=== PATIENT | female | born 1955 | race Caucasian/White ===

== ENCOUNTER 2020-01-05 23:14 | Emergency (ER) | payer OTHER, SELFPAY ==
[2020-01-05 23:19] VITALS: BP 172/84; PULSE 88; RESP 17; TEMP 36.7; O2SAT 98; BMI 30.2
--- NOTE | 2020-01-05 23:30 | ED_ITS ---
HPI - Back Pain/Injury General: Stated Complaint: back pain Time Seen by Provider: 01/05/20 23:15 Source: patient and family Mode of arrival: wheelchair Limitations: no limitations History of Present Illness: HPI Narrative: Patient is a very nice 64-year-old female who presents to ED today along with her daughter for complaints of right- sided back pain. Patient tells me earlier today she was picking up her dog and feels like she picked up and twisted wrong and immediately noticed a very sharp pain to her right back. 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 She states these normally do not cause her any problems and she normally does not suffer from back pain. She tells me her pain seems to radiate down her right leg. She is not having any saddle anesthesia. She does not complain of any bowel incontinence or urinary retention. Patient tells me she has tried to treat with Ibuprofen and Aleve both without success. MD elicited complaint: back pain Onset (ago): hour(s) Timing: constant (with severe exacerbations ) Severity: severe Pain scale (0-10): 10 Quality: sharp Location: lumbar spine and right lower back Radiation: right leg below the knee Exacerbating factors: immobilization Relieving factors: movement and walking Context: while lifting and turning/twisting Associated symptoms: Reports no associated symptoms and difficulty walking (secondary to pain); Deny abdominal pain, dysuria or fever(s) Treatments prior to arrival: NSAIDS Work related injury: No Review of Systems Const: Denies: fever(s) Card: Denies: chest pain Resp: Denies: dyspnea GI: Denies: abdominal pain : Denies: flank pain or dysuria Musc: Reports: back pain; Denies: neck pain, joint pain or joint swelling Neuro: Reports: difficulty walking (secondary to pain); Denies: numbness in extremities, sensory changes or lack of coordination Physical Exam Const: COMMON NORMALS: average body habitus, patient oriented x3, no limitations, healthy appearing, alert and well nourished GENERAL APPEARANCE: cooperative and in distress (appears very uncomfortable) Back/Pelvis: LUMBAR SPINE/LOWER BACK: No lumbar spinal tenderness, Yes straight leg raise positive right and Yes other soft tissue findings (TTP over R SI/buttock) Extremity: COMMON NORMALS: normal to inspection GENERAL: Yes normal exam except as noted Neuro: COMMON NORMALS: patient oriented x3, moves all extremities, no focal motor deficits and no sensory deficits noted SENSORIUM/ORIENTATION: Yes alert GAIT: Yes Unable to assess gait SENSORY EXAM: Yes extremities (sensory equal to bilateral LEs) MOTOR EXAM: 5/5 motor strength present throughout Course Reevaluation(s): Reevaluation #1: Patient has been re-evaluated several times and still continues to complain of pain. She reports she does not feel comfortable going home in the amount of pain she is in currently. I will continue to try and treat her pain adequately. Reevaluation #2: Patient now telling me her pain seemed to have broke loose and now states her pain is at a 0/10. She feels comfortable going home at this time. Vital Signs: Vital signs: Vital Signs Temperature 98.1 F 01/05/20 23:19 Pulse Rate 86 01/06/20 02:28 Respiratory Rate 16 01/06/20 02:28 Blood Pressure 130/85 01/06/20 02:28 Pulse Oximetry 95 01/06/20 02:28 MDM - Back Pain/Injury MDM Narrative: Medical decision making narrative: Patient's neurological exam is normal. Based on her history and the normal physical exam I do not feel emergent CT imaging is warranted at this time. I feel x-rays would be very low yield based on her symptoms. She is completely pain-free at the end of her visit. Recommend close follow-up with PCP. Return to ED precautions given. Discharge Plan Discharge Patient Disposition: Home Clinical Impression: Acute lumbar radiculopathy Condition: Stable Prescriptions: New cyclobenzaprine 10 mg tablet 10 mg PO TID Qty: 14 RF: 0 prednisone 10 mg tablet 60 mg PO DAILY 5 Days Qty: 30 RF: 0 ibuprofen 800 mg tablet 800 mg PO Q8H PRN (Reason: pain) Qty: 20 RF: 0 hydrocodone-acetaminophen 5-325 mg tablet 1 tab PO Q4H PRN (Reason: pain) Qty: 20 RF: 0 No Action Xanax 0.5 mg PO BID RF: 0 Effexor XR 150 mg Capsule,Extended Release 24hr PO DAILY RF: 0 Discharge Orders: Discharge Order (Routine); Ordered 01/06/20 Ordered By: Swathi Cruz Referrals: Margaret Menjivar APN [Primary Care Provider] - Activity Restrictions/Additional Instructions: Please follow-up with your primary care provider early next week for reevaluation. You may return to the emergency department for worsening or uncontrollable pain, inability to urinate, bowel incontinence, weakness, unable to ambulate, or any other concerns you may have. I hope you begin to feel better soon. Discharge Date/Time: 01/06/20 02:37 Coding Level of Care Code ED Institutional Commodity Analyst for Abelg Fwd Exam Expanded Problem Focused
[2020-01-05 23:39] VITALS: BP 182/103; PULSE 84; RESP 16; O2SAT 98
[2020-01-06 00:26] VITALS: RESP 16; O2SAT 98
[2020-01-06] MEDS: morphine 4 mg/mL SDV 1 mL IVP (00:26)
[2020-01-06 00:27] VITALS: BP 206/111; PULSE 85; RESP 14; O2SAT 97
[2020-01-06] MEDS: dexamethasone 10 mg/mL INJ 8 MG IV (00:31)
[2020-01-06] MEDS: orphenadrine 30 mg/mL Inj 2 mL 60 MG IVP (00:36)
[2020-01-06] MEDS: ketorolac 30 mg/mL INJ IVP (00:41)
[2020-01-06 01:04] VITALS: RESP 14; O2SAT 96
[2020-01-06] MEDS: HYDROmorphone 1 mg/mL INJ 1 mL IVP (01:04)
[2020-01-06 01:34] VITALS: RESP 14; O2SAT 93
[2020-01-06] MEDS: fentaNYL 50 mcg/mL INJ 2mL 75 MCG IVP (01:34)
[2020-01-06 01:41] VITALS: BP 157/86; PULSE 82; RESP 12; O2SAT 95
[2020-01-06] MEDS: HYDROcodone-acetaminophen 5-325 mg Tablet 1 TAB PO (02:27)
[2020-01-06 02:28] VITALS: BP 130/85; PULSE 86; RESP 16; O2SAT 95
== END 2020-01-06 02:37 | disposition home or self-care (01) ==
PROVIDERS: Emergency Provider Physician Assistant; PCP Nurse Practitioner Family
DX: M54.16 Radiculopathy, lumbar region (principal)
CPT/HCPCS: 12345; 96374; 96375; 99283; J1100; J1170; J1885; J2270; J2360; J3010

== ENCOUNTER → 2020-03-07 11:45 | Outpatient (BNVA) | payer OTHER, SELFPAY | PROVIDERS: PCP Nurse Practitioner Family; Visit Provider Nurse Practitioner Family | DX: Z20.828 Contact with and (suspected) exposure to other viral communicable diseases (principal); J06.9 Acute upper respiratory infection, unspecified | CPT/HCPCS: 87635 ==

== ENCOUNTER 2020-12-07 10:10 | Outpatient (CLI) | payer OTHER, SELFPAY ==
--- NOTE | 2020-12-07 10:17 | MM_ITS ---
WS: [id number] Bilateral screening digital mammogram, 12/07/2020 Clinical Data: SCREENING Comparison: 06/24/2016, 03/17/2011, 05/14/2009, 12/08/2006. Findings: The breast parenchymal pattern shows fat replacement. No spiculated masses or clustered calcification s are seen. There are no secondary signs of carcinoma. There are lymph nodes in both axilla. MM/[place] [id number] Impression: 1. Negative bilateral mammogram unchanged. 2. Recommend annual screening mammograms. BIRADS: 1-Negative FOLLOW UP: 1 Year Follow-up The CAD checkerer hand was used.
== END 2020-12-07 10:11 | disposition home or self-care (01) ==
LOC: RADSHAW 10:16
PROVIDERS: PCP Nurse Practitioner Family; Visit Provider Nurse Practitioner Family
DX: Z12.31 Encounter for screening mammogram for malignant neoplasm of breast (principal)
CPT/HCPCS: 77067

== ENCOUNTER → 2020-12-14 09:43 | Outpatient (BNVA) | payer OTHER, SELFPAY | PROVIDERS: PCP Nurse Practitioner Family; Visit Provider Nurse Practitioner Family | DX: Z20.822 Contact with and (suspected) exposure to COVID-19 (principal) | CPT/HCPCS: 87635 ==

== ENCOUNTER 2020-12-18 12:14 | Emergency (ER) | payer OTHER, SELFPAY ==
[2020-12-18 12:32] VITALS: BP 169/100; PULSE 114; RESP 19; TEMP 37.7; O2SAT 96
[2020-12-18 12:58] VITALS: BP 152/90; PULSE 98; O2SAT 98
--- NOTE | 2020-12-18 13:00 | XR_ITS ---
WS: [id number] Exam: XR KUB portable [id number] Date/Time of Exam: 12/18/2020 1:00 PM Reason For Exam: constipation Comparison 12/30/2017. No bowel obstruction or free air. Visualized organ margins are normal in appearance. Regional bony el ements are unremarkable. XR/XR KUB portable [id number] IMPRESSION: 1. No acute abdominal process.
--- NOTE | 2020-12-18 13:04 | XR_ITS ---
WS: [id number] Exam: XR chest 1V portable [id number] Date/Time of Exam: 12/18/2020 1:04 PM Reason For Exam: dyspnea/cough Comparison 08/10/2016. Findings: The lungs are clear and fully expanded. Costophrenic angles are sharp. No infiltrates. Bronchovascula r relief appears normal. Cardiac silhouette is unremarkable. Bony elements are intact. Surgical clips in the right neck. XR/XR chest 1V portable [id number] IMPRESSION: Unremarkable chest radiograph.
--- NOTE | 2020-12-18 13:22 | CT_ITS ---
WS: [id number] Exam: CT abdomen pelvis w con* [id number] Date/Time of Exam: 12/18/2020 3:43 PM Reason For Exam: abd pain DLP: 1627.[address] scans at [facility] use at least one of these dose optimization techniques: automat ed exposure control; mA and/or kV adjustment per patient size (includes targeted exams where dose is matched to clinical indication); or iterative reconstruction. Comparison 12/18/2017 Lower lung zones are clear. The liver, gallbladder, spleen, stomach and pancreas are unremarkable. No rmal adrenal glands. Subcentimeter right renal cyst. Normal left kidney. The abdominal aorta is kim l in caliber. The portal vein and IVC are patent. No free air. No lymphadenopathy. Small bowel loops are normal in caliber. No significant large bowel abnormality seen. No sign of acute appendix. No pel joel mass or lymphadenopathy. No free air. Intact urinary bladder. The uterus is surgically absent. Ti ny fat filled periumbilical hernia. No destructive bone lesions. 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 Posterior disc bulge at L4-[address] disc[address]/CT abdomen pelvis w con* [id number] IMPRESSION: 1. No mass, lymphadenopathy or acute process in the abdomen or pelvis. 2. Additional additional nonemergent findings as detailed above.
--- NOTE | 2020-12-18 13:22 | W.ED.ABDPA2 ---
HPI - Abdominal Pain General: Chief Complaint: Abdominal Pain Stated Complaint: Covid (-) on Fri:ABD PAIN/SWELLING,VOMIT X 1WK Time Seen by Provider: 12/18/20 12:44 History of Present Illness: HPI narrative: 65-year-old female presents emergency room with abdominal pain nausea and vomiting intermittently for the last week. She also had myalgias headache anosmia. She was seen 4 days ago and had a Covid test done that was negative. She has had some intermittent low-grade fever at home as well. She has not previously been diagnosed with Covid she has had 1 dose of the vaccine. She denies any hematochezia melena hematemesis or coffee-ground emesis denies any dysuria urgency or frequency. Patient initially had some constipation she took several docusate and now has had loose stools but not had a rather bowel movement. MD elicited complaint: abdominal pain Onset (ago): day(s) Pain Consistency: intermittent Location: Diffuse Severity: moderate Quality: cramping Radiation: none Migration to: no migration Exacerbating factors: nothing Relieving factors: nothing Associated Symptoms: Reports bloating, constipation, GI cramping, diarrhea, nausea and poor appetite; Denies anorexia, belching, change in bowel habits, change in stool character, chills, coffee ground emesis, dyspepsia, dysuria, excessive flatus, fever(s), heartburn, hematochezia, hematuria, hematemesis, fecal incontinence, loose stools, melena, syncope and vomiting Review of Systems Const: Denies: fever(s) or chills ENMT: Denies: throat pain, ear or mastoid pain, nasal discharge or nasal congestion Card: Denies: syncope Resp: Denies: dyspnea, productive cough or non-productive cough GI: Reports: nausea, diarrhea, constipation, bloating and GI cramping; Denies: vomiting, hematemesis, coffee ground emesis, heartburn, belching, excessive flatus, fecal incontinence, change in bowel habits, change in stool character, hematochezia or melena : Denies: dysuria or hematuria Skin/Breast: Denies: rash or pruritus PFSH ED PFSH: Social History Smoking and tobacco status: never smoked Alcohol intake: never Physical Exam Const: COMMON NORMALS: no acute distress GENERAL APPEARANCE: cooperative and comfortable ORIENTATION/CONSCIOUSNESS: Yes awake, Yes oriented to person, Yes oriented to place and Yes oriented to time HENMT: COMMON NORMALS: normocephalic, atraumatic and hearing grossly normal bilaterally HEAD & SCALP: normocephalic and atraumatic Neck/C-Spine: COMMON NORMALS: no JVD Resp: COMMON NORMALS: normal respiratory effort, No retractions, No use of accessory muscles and clear to auscultation bilaterally AUSCULTATION: clear to auscultation bilaterally Cardio: COMMON NORMALS: no JVD, regular rate, regular rhythm and No murmurs present (Cardio) RATE: regular rate RHYTHM: regular rhythm GI: COMMON NORMALS: No hepatosplenomegaly present AUSCULTATION: Yes normoactive bowel sounds PALPATION: Yes Tenderness to palpation present (GI) (Diffuse), No Guarding due to palpation present (GI) and Yes No hepatosplenomegaly present Extremity: COMMON NORMALS: normal to inspection, capillary refill normal, no clubbing, cyanosis or edema, no calf tenderness and no pedal edema Neuro: SENSORIUM/ORIENTATION: Yes oriented to person, Yes oriented to place and Yes oriented to time Skin: COMMON NORMALS: no rashes or lesions noted GENERAL SKIN EXAM: no rashes or lesions noted Course Vital Signs: Vital signs: Vital Signs Temperature 98.8 F 12/18/20 19:50 Pulse Rate 80 12/18/20 19:50 Respiratory Rate 20 H 12/18/20 19:50 Blood Pressure 148/82 12/18/20 19:50 Pulse Oximetry 98 12/18/20 19:50 MDM - Abdominal Pain MDM Narrative: Medical decision making narrative: 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 Cultures done started on initial antibiotics will admit we are going to admit the patient but we do not have any available beds here we were able to secure a bed at [facility] they will accept her on transfer Lab Data: Labs: Lab Results 12/18/20 12/18/20 12/18/20 Range/Units 13:42 15:10 15:10 WBC 2.7 L (4.0-10.0) 10^3/ uL RBC 4.48 (4.1-5.3) 10^6/u L Hgb 12.9 (11.5-15.3) g/dL Hct 39.2 (37.0-47.0) % MCV 87.5 (81-99) fl MCH 28.8 (28.0-34.0) pg MCHC 32.9 (30.0-36.0) g/dL RDW 13.4 (12.1-15.1) % Plt Count 83 L (130-400) 10^3/c mm MPV 11.1 H (7.4-10.4) fL Neut % (Auto) 27.1 % Lymph % (Auto) 61.1 % Ashley % (Auto) 10.6 % Eos % (Auto) 0.0 % Baso % (Auto) 0.8 % Neut # (Auto) 0.72 L* (1.8-7.7) 10^3/u L Lymph # (Auto) 1.6 (0.8-4.8) 10^3/u L Ashley # (Auto) 0.3 (0.2-0.9) 10^3/u L Eos # (Auto) 0.0 (0.0-0.8) 10^3/u L Baso # (Auto) 0.0 (0.0-0.1) 10^3/u L Nucleated RBC % (a uto) 0 % Nucleated RBCs # 0.0 /100WBC Sodium 136 (136-145) mmol/L Potassium 4.1 (3.5-5.1) mmol/L Chloride 100 (98-107) mmol/L Carbon Dioxide 26 (22-29) mmol/L Anion Gap 14.1 (5-19) BUN 12 (8-23) mg/dL Creatinine 0.6 (0.5-0.9) mg/dL GFR Calculation 101.0 (90-130) mL/min Glucose 95 (65-115) mg/dL Calculated Osmolal ity 282 L (285-295) mOsm/k g Calcium 8.6 (8.5-10.5) mg/dL Total Bilirubin 2.0 H (0.15-1.2) mg/dL AST 139 H (0-32) U/L ALT 103 H (0-33) U/L Alkaline Phosphata se 297 H (35-105) IU/L Creatine Kinase 53 (26-192) U/L Total Protein 6.0 L (6.6-8.7) g/dL Albumin 3.5 (3.5-5.2) g/dL Globulin 2.5 (1.3-4.6) g/dL Lipase 39 (13-60) U/L Urine Color (Yellow) Urine Appearance (CLEAR) Urine pH (5-7) Ur Specific Gravit y (1.005-1.030) Urine Protein (Negative) Urine Glucose (UA) (Normal) Urine Ketones (Negative) Urine Blood (Negative) Urine Nitrate (Negative) Urine Bilirubin (Negative) Urine Urobilinogen (Negative) mg/dL Ur Leukocyte Sudha ase (Negative) Urine RBC (0-2) /hpf Urine WBC (0-5) /hpf Ur Squamous Epith Cells (0-5) /hpf Amorphous Sediment Urine Bacteria (NONE) /hpf Lyme Ab (Western B lot) index Nasal/Oral COVID-1 9 PCR E. chaffeensis IgG Ab E. chaffeensis IgM Ab E. chaffeensis Int erp E. chaffeensis Com ment Hepatitis A IgM Ab (Nonreactive) Hep Bs Antigen (Nonreactive) Hep B Core IgM Ab (Nonreactive) Hepatitis C Antibo dy (Nonreactive) Rickettsia IgG Ab Rickettsia IgM Ab SARS-CoV-2 Ag (Rap id) Negative (Negative) 12/18/20 12/18/20 12/18/20 Range/Units 15:10 15:23 16:15 WBC (4.0-10.0) 10^3/ uL RBC (4.1-5.3) 10^6/u L Hgb (11.5-15.3) g/dL Hct (37.0-47.0) % MCV (81-99) fl MCH (28.0-34.0) pg MCHC (30.0-36.0) g/dL RDW (12.1-15.1) % Plt Count (130-400) 10^3/c mm MPV (7.4-10.4) fL Neut % (Auto) % Lymph % (Auto) % Ashley % (Auto) % Eos % (Auto) % Baso % (Auto) % Neut # (Auto) (1.8-7.7) 10^3/u L Lymph # (Auto) (0.8-4.8) 10^3/u L Ashley # (Auto) (0.2-0.9) 10^3/u L Eos # (Auto) (0.0-0.8) 10^3/u L Baso # (Auto) (0.0-0.1) 10^3/u L Nucleated RBC % (a uto) % Nucleated RBCs # /100WBC Sodium (136-145) mmol/L Potassium (3.5-5.1) mmol/L Chloride (98-107) mmol/L Carbon Dioxide (22-29) mmol/L Anion Gap (5-19) BUN (8-23) mg/dL Creatinine (0.5-0.9) mg/dL GFR Calculation (90-130) mL/min Glucose (65-115) mg/dL Calculated Osmolal ity (285-295) mOsm/k g Calcium (8.5-10.5) mg/dL Total Bilirubin (0.15-1.2) mg/dL AST (0-32) U/L ALT (0-33) U/L Alkaline Phosphata se (35-105) IU/L Creatine Kinase (26-192) U/L Total Protein (6.6-8.7) g/dL Albumin (3.5-5.2) g/dL Globulin (1.3-4.6) g/dL Lipase (13-60) U/L Urine Color Dark yellow (Yellow) Urine Appearance Clear (CLEAR) Urine pH 8 H (5-7) Ur Specific Gravit y 1.010 (1.005-1.030) Urine Protein Neg (Negative) Urine Glucose (UA) Norm (Normal) Urine Ketones Negative (Negative) Urine Blood Neg (Negative) Urine Nitrate Negative (Negative) Urine Bilirubin 1+ H (Negative) Urine Urobilinogen 4+ H (Negative) mg/dL Ur Leukocyte Sudha ase Negative (Negative) Urine RBC None (0-2) /hpf Urine WBC None (0-5) /hpf Ur Squamous Epith Cells Rare (0-5) /hpf Amorphous Sediment Not Reportable Urine Bacteria Trace (NONE) /hpf Lyme Ab (Western B lot) index Nasal/Oral COVID-1 9 PCR Not detected E. chaffeensis IgG Ab E. chaffeensis IgM Ab E. chaffeensis Int erp E. chaffeensis Com ment Hepatitis A IgM Ab Non-reactive (Nonreactive) Hep Bs Antigen Non-reactive (Nonreactive) Hep B Core IgM Ab Non-reactive (Nonreactive) Hepatitis C Antibo dy Non-reactive (Nonreactive) Rickettsia IgG Ab Rickettsia IgM Ab SARS-CoV-2 Ag (Rap id) (Negative) 12/18/20 Range/Units 18:15 WBC (4.0-10.0) 10^3/ uL RBC (4.1-5.3) 10^6/u L Hgb (11.5-15.3) g/dL Hct (37.0-47.0) % MCV (81-99) fl MCH (28.0-34.0) pg MCHC (30.0-36.0) g/dL RDW (12.1-15.1) % Plt Count (130-400) 10^3/c mm MPV (7.4-10.4) fL Neut % (Auto) % Lymph % (Auto) % Ashley % (Auto) % Eos % (Auto) % Baso % (Auto) % Neut # (Auto) (1.8-7.7) 10^3/u L Lymph # (Auto) (0.8-4.8) 10^3/u L Ashley # (Auto) (0.2-0.9) 10^3/u L Eos # (Auto) (0.0-0.8) 10^3/u L Baso # (Auto) (0.0-0.1) 10^3/u L Nucleated RBC % (a uto) % Nucleated RBCs # /100WBC Sodium (136-145) mmol/L Potassium (3.5-5.1) mmol/L Chloride (98-107) mmol/L Carbon Dioxide (22-29) mmol/L Anion Gap (5-19) BUN (8-23) mg/dL Creatinine (0.5-0.9) mg/dL GFR Calculation (90-130) mL/min Glucose (65-115) mg/dL Calculated Osmolal ity (285-295) mOsm/k g Calcium (8.5-10.5) mg/dL Total Bilirubin (0.15-1.2) mg/dL AST (0-32) U/L ALT (0-33) U/L Alkaline Phosphata se (35-105) IU/L Creatine Kinase (26-192) U/L Total Protein (6.6-8.7) g/dL Albumin (3.5-5.2) g/dL Globulin (1.3-4.6) g/dL Lipase (13-60) U/L Urine Color (Yellow) Urine Appearance (CLEAR) Urine pH (5-7) Ur Specific Gravit y (1.005-1.030) Urine Protein (Negative) Urine Glucose (UA) (Normal) Urine Ketones (Negative) Urine Blood (Negative) Urine Nitrate (Negative) Urine Bilirubin (Negative) Urine Urobilinogen (Negative) mg/dL Ur Leukocyte Sudha ase (Negative) Urine RBC (0-2) /hpf Urine WBC (0-5) /hpf Ur Squamous Epith Cells (0-5) /hpf Amorphous Sediment Urine Bacteria (NONE) /hpf Lyme Ab (Western B lot) <0.90 index Nasal/Oral COVID-1 9 PCR E. chaffeensis IgG Ab <1:64 E. chaffeensis IgM Ab <1:20 E. chaffeensis Int erp See note E. chaffeensis Com ment Not Reportable Hepatitis A IgM Ab (Nonreactive) Hep Bs Antigen (Nonreactive) Hep B Core IgM Ab (Nonreactive) Hepatitis C Antibo dy (Nonreactive) Rickettsia IgG Ab Not detected Rickettsia IgM Ab Not detected SARS-CoV-2 Ag (Rap id) (Negative) Discharge Plan Discharge Patient Disposition: Xfer Short-Term Hosp Clinical Impression: Neutropenia, Abdominal pain, Constipation Referrals: Menjivar,DONNA Block [Primary Care Provider] - Patient Instructions: Abdominal Pain (ED) Coding Level of Care Code ED Shells Inspector for Chg Fwd Exam Comprehensive
--- NOTE | 2020-12-18 14:35 | PC.PHAR ---
pt states she still takes duloxetine 30mg once daily. Med is prescribed as 30mg BID x 30 days filled on 08/20/20. Pt states she has only been taking once daily and started taking her husbands Duloxetine (same dosing) before she started taking her own, so she still has some of her own medication remaining.
[2020-12-18 15:09] LABS: SARS Covid-2 Antigen Negative (Negative)
[2020-12-18 15:23] LABS: Basophils % 0.8 %; Hematocrit 39.2 % (37.0-47.0); Hemoglobin 12.9 g/dL (11.5-15.3); Lymphocytes # 1.6 10^3/uL (0.8-4.8); Lymphocytes % 61.1 %; Mean Corpuscular HGB Conc 32.9 g/dL (30.0-36.0); Mean Corpuscular Hemoglobin 28.8 pg (28.0-34.0); Mean Corpuscular Volume 87.5 fl (81-99); Mean Platelet Volume 11.1 fL (7.4-10.4); Monocytes # 0.3 10^3/uL (0.2-0.9); Monocytes % 10.6 %; Neutrophils % 27.1 %; Nucleated Red Blood Cells % 0 %; Platelet Count 83 10^3/cmm (130-400); Red Blood Count 4.48 10^6/uL (4.1-5.3); Red Cell Distribution Width 13.4 % (12.1-15.1); White Blood Count 2.7 10^3/uL (4.0-10.0)
[2020-12-18 15:41] LABS: Alanine Aminotransferase 103 U/L (0-33); Albumin Level 3.5 g/dL (3.5-5.2); Alkaline Phosphatase 297 IU/L (35-105); Anion Gap 14.1 (5-19); Aspartate Amino Transferase 139 U/L (0-32); Blood Urea Nitrogen 12 mg/dL (8-23); Calcium 8.6 mg/dL (8.5-10.5); Carbon Dioxide 26 mmol/L (22-29); Chloride 100 mmol/L (98-107); Creatine Phosphokinase 53 U/L (26-192); Globulin 2.5 g/dL (1.3-4.6); Glucose 95 mg/dL (65-115); Lipase 39 U/L (13-60); Osmolality Calculated 282 mOsm/kg (285-295); Potassium 4.1 mmol/L (3.5-5.1); Sodium 136 mmol/L (136-145)
[2020-12-18 15:51] VITALS: BP 145/92; O2SAT 94
[2020-12-18] MEDS: iohexol 300 mg/mL 100 mL Btl IV (15:54)
[2020-12-18 15:59] LABS: Neutrophils # 0.72 10^3/uL (1.8-7.7)
[2020-12-18 16:01] LABS: Slide Review Slide Review Perform
--- NOTE | 2020-12-18 16:26 | USR_ITS ---
PROCEDURE INFORMATION: Exam: US Abdomen, Limited; Right Upper Quadrant Exam date and time: 12/18/2020 4:26 PM Age: 65 years old Clinical indication: Abnormal findings; Abnormal lab test; Elevated liver enzymes; Additional info: Elevated lfts TECHNIQUE: Imaging protocol: US abdomen. Real time ultrasound with image documentation. Limited exam focused on the right upper quadrant. COMPARISON: CT abdomen pelvis w con* [id number] 12/18/2020 3:51 PM FINDINGS: Liver: Normal. No masses. Gallbladder: Normal. No gallstones. There is no gallbladder wall thickening. Common bile duct: Normal. No stones. No dilation. Pancreas: Visualized pancreas is unremarkable. Right kidney: Normal. No mass. No hydronephrosis. US/US gall bladder [id number] IMPRESSION: No acute findings.
[2020-12-18 16:30] LABS: Bilirubin Urine 1+ (Negative); Blood Urine Neg (Negative); Glucose Urine UA Norm (Normal); Ketones Urine Negative (Negative); Leukocyte Esterase Urine Negative (Negative); Nitrate Urine Negative (Negative); Protein Urine Neg (Negative); Urine Appearance Clear (CLEAR); Urine Color Dark Yellow (Yellow); Urobilinogen Urine 4+ mg/dL (Negative); pH Urine 8 (5-7)
[2020-12-18 16:32] LABS: Add Urine Culture? No; Bacteria Urine TRACE /hpf; Squamous Epithelial Cell Urine RARE /hpf (0-5)
[2020-12-18 16:40] VITALS: BP 148/88; PULSE 91; O2SAT 98
[2020-12-18 17:25] LABS: Hepatitis A Antibody IgM Non-Reactive (Nonreactive); Hepatitis B Core IgM Non-Reactive (Nonreactive); Hepatitis B Surface Antigen Non-Reactive (Nonreactive); Hepatitis C Virus Antibody Non-Reactive (Nonreactive)
[2020-12-18] MEDS: levofloxacin-dextrose 5 % 750 MG/150 ML PREMIX 100 MG IV (19:40)
[2020-12-18 19:50] VITALS: BP 148/82; PULSE 80; RESP 20; TEMP 37.1; O2SAT 98
[2020-12-19 16:03] LABS: Coronavirus Test Green County Not Detected
[2020-12-20 16:03] LABS: Lyme AB Screen <0.90 index
[2020-12-22 17:23] LABS: RMSF IGG NOT DETECTED; RMSF IGM NOT DETECTED
[2020-12-22 21:57] LABS: E. Chaffeensis AB IGG <1:64; E. Chaffeensis AB IGM <1:20
== END 2020-12-18 19:45 | disposition short-term general hospital (02) ==
PROVIDERS: Physician Assistant; Emergency Provider Family Medicine; PCP Nurse Practitioner Family
DX: D70.9 Neutropenia, unspecified (principal); K59.00 Constipation, unspecified
CPT/HCPCS: 71045; 74018; 74177; 76705; 80053; 80074; 81001; 82550; 83690; 85025; 86618; 86666; 86757; 87040; 87426; 87635; 96365; 99285; J1956; Q9967

== ENCOUNTER → 2022-04-10 15:03 | Outpatient (BNVA) | payer OTHER, SELFPAY | PROVIDERS: PCP Nurse Practitioner Family; Visit Provider Orthopaedic Surgery | DX: M48.062 Spinal stenosis, lumbar region with neurogenic claudication (principal); D49.7 Neoplasm of unspecified behavior of endocrine glands and other parts of nervous system | CPT/HCPCS: 72110 ==

== ENCOUNTER 2022-07-19 07:09 | Emergency (ER) | payer OTHER, SELFPAY ==
[2022-07-19] VITALS (10 sets, daily range): BP systolic 128–154; BP diastolic 83–100; PULSE 86–100; RESP 16–28; TEMP 36.8; O2SAT 93–97; BMI 34.7
--- NOTE | 2022-07-19 07:23 | XRR_ITS ---
PROCEDURE INFORMATION: Exam: XR Chest Exam date and time: 07/19/2022 7:46 AM Age: 66 years old Clinical indication: Pain; Chest pressure; Additional info: Chest pain TECHNIQUE: Imaging protocol: Radiologic exam of the chest. Views: 1 view. COMPARISON: CR XR chest 1V portable [id number] 12/18/2020 1:07 PM FINDINGS: Lungs: Unremarkable. No consolidation. Pleural spaces: Unremarkable. No pleural effusion. No pneumothorax. Heart/Mediastinum: Unremarkable. No cardiomegaly. Bones/joints: Unremarkable. XR/XR chest 1V portable [id number] IMPRESSION: No acute findings.
--- NOTE | 2022-07-19 07:26 | ECG_ITS ---
[facility] Test Date: 2022-07-19 Pat Name: Michelle Edwards Department: Room: Gender: Female Deputy Court Clerk: : [id number] Requested By: Yo Dale Order Number: [id number] Jeromy MD: Florencio Starkey M.D. Measurements Intervals Eastman Rate: 96 P: 39 ND: 159 QRS: 36 QRSD: 97 T: 42 QT: 336 QTc: 425 Interpretive Statements SINUS RHYTHM Compared to ECG 08/10/2016 19:03:51 No significant changes Electronically Signed On 07-19-2022 15:24:10 CDT by Florencio Starkey M.D. [id number]
--- NOTE | 2022-07-19 07:44 | W.ED.CHESTPA ---
HPI - Chest Pain General: Chief Complaint: Chest Pain Stated Complaint: chest pain, legs swelling Time Seen by Provider: 07/19/22 07:10 Source: patient Mode of arrival: ambulatory History of Present Illness: 66-year-old female presents to the emergency room with complaints of chest pain and pressure with discomfort in her right arm this been going on for the last 36 hours. She also notes her blood pressures been elevated. She is not on any antihypertensives at this time. No fevers sweats or chills no vomiting no diarrhea. No previous cardiac history or work-up. She has noticed that when she lays down flat the discomfort seems to worsen when she sits up but is better she has not associated any activity with worsening or improvement. MD complaint: chest discomfort Onset (ago): day(s) Timing of current episode: episodic Onset: during rest Pain location: right chest Pain radiation: none Severity: mild Quality: tightness Relieving factors: nothing Exacerbating factors: supine Associated symptoms: Deny abdominal pain, diaphoresis, dyspnea, fever(s), leg edema, nausea, palpitations, sense of impending doom, syncope or vomiting Treatment prior to arrival: none Review of Systems Const: Denies: fever(s), chills, fatigue, malaise or diaphoresis ENMT: Denies: throat pain, ear or mastoid pain, nasal discharge or nasal congestion Card: Reports: chest pain; Denies: palpitations, irregular heart rhythm, edema, swelling of feet/ankles or syncope Resp: Denies: dyspnea GI: Denies: abdominal pain, nausea or vomiting : Denies: flank pain, difficulty voiding, dysuria, urinary frequency or urinary urgency Skin/Breast: Denies: rash or pruritus PFSH ED PFSH: Medical History Depression Social History Smoking and tobacco status: never smoked Alcohol intake: never Physical Exam Const: GENERAL APPEARANCE: cooperative and comfortable ORIENTATION/CONSCIOUSNESS: Yes awake, Yes oriented to person, Yes oriented to place and Yes oriented to time HENMT: COMMON NORMALS: normocephalic, atraumatic and hearing grossly normal bilaterally HEAD & SCALP: normocephalic and atraumatic Resp: COMMON NORMALS: normal respiratory effort, No retractions, No use of accessory muscles and clear to auscultation bilaterally AUSCULTATION: clear to auscultation bilaterally Cardio: COMMON NORMALS: regular rate, regular rhythm and No murmurs present (Cardio) RATE: regular rate RHYTHM: regular rhythm GI: COMMON NORMALS: Soft to palpation and No hepatosplenomegaly present AUSCULTATION: Yes normoactive bowel sounds PALPATION: Yes Soft to palpation, No Tenderness to palpation present (GI), No Guarding due to palpation present (GI) and Yes No hepatosplenomegaly present Extremity: COMMON NORMALS: normal to inspection, capillary refill normal, no clubbing, cyanosis or edema, no calf tenderness and no pedal edema Neuro: SENSORIUM/ORIENTATION: Yes oriented to person, Yes oriented to place and Yes oriented to time Skin: COMMON NORMALS: no rashes or lesions noted GENERAL SKIN EXAM: no rashes or lesions noted Course Vital Signs: Vital signs: Vital Signs Temperature 98.2 F 07/19/22 07:21 Pulse Rate 89 07/19/22 09:50 Respiratory Rate 28 H 07/19/22 09:50 Blood Pressure 128/85 07/19/22 09:50 Pulse Oximetry 95 07/19/22 09:50 Oxygen Delivery Me thod 07/19/22 07:21 MDM - Chest Pain Medical Decision Making Labs imaging and EKG reviewed EKG shows no acute ST changes. We will stop her omeprazole switch her to pantoprazole 40 twice daily aspirin daily 81 mg and set up for a Lexiscan sestamibi stress test. Return if she has further problems. Reviewed with labs imaging and EKG with the patient no acute cardiac findings at this time. Medical Records I reviewed the patient's medical records. Lab Data I reviewed the patient's lab results. 07/19/22 07:39 07/19/22 07:39 Radiology Impressions Chest X-Ray 07/19/22 07:23 IMPRESSION: No acute findings. Laboratory Results WBC 6.5 10^3/uL (4.0-10.0) 07/19/22 07:39 RBC 5.06 10^6/uL (4.1-5.3) 07/19/22 07:39 Hgb 14.5 g/dL (11.5-15.3) 07/19/22 07:39 Hct 44.8 % (37.0-47.0) 07/19/22 07:39 MCV 88.5 fl (81-99) 07/19/22 07:39 MCH 28.7 pg (28.0-34.0) 07/19/22 07:39 MCHC 32.4 g/dL (30.0-36.0) 07/19/22 07:39 RDW 12.8 % (12.1-15.1) 07/19/22 07:39 Plt Count 274 10^3/cmm (130-400) 07/19/22 07:39 MPV 10.3 fL (7.4-10.4) 07/19/22 07:39 Neut % (Auto) 52.2 % 07/19/22 07:39 Lymph % (Auto) 37.6 % 07/19/22 07:39 Gregg % (Auto) 7.2 % 07/19/22 07:39 Eos % (Auto) 1.7 % 07/19/22 07:39 Baso % (Auto) 1.1 % 07/19/22 07:39 Neut # (Auto) 3.40 10^3/uL (1.8-7.7) 07/19/22 07:39 Lymph # (Auto) 2.5 10^3/uL (0.8-4.8) 07/19/22 07:39 Gregg # (Auto) 0.5 10^3/uL (0.2-0.9) 07/19/22 07:39 Eos # (Auto) 0.1 10^3/uL (0.0-0.8) 07/19/22 07:39 Baso # (Auto) 0.1 10^3/uL (0.0-0.1) 07/19/22 07:39 Nucleated RBC % (auto) 0 % 07/19/22 07:39 Nucleated RBCs # 0.0 /100WBC 07/19/22 07:39 Sodium 140 mmol/L (136-145) 07/19/22 07:39 Potassium 3.2 mmol/L (3.5-5.1) L 07/19/22 07:39 Chloride 102 mmol/L (98-107) 07/19/22 07:39 Carbon Dioxide 26 mmol/L (22-29) 07/19/22 07:39 Anion Gap 15.2 (5-19) 07/19/22 07:39 BUN 15 mg/dL (8-23) 07/19/22 07:39 Creatinine 1.0 mg/dL (0.5-0.9) H 07/19/22 07:39 GFR Calculation 55.8 mL/min (90-130) L 07/19/22 07:39 Glucose 136 mg/dL (65-115) H 07/19/22 07:39 Calculated Osmolality 293 mOsm/kg (285-295) 07/19/22 07:39 Calcium 9.5 mg/dL (8.5-10.5) 07/19/22 07:39 Total Bilirubin 0.3 mg/dL (0.15-1.2) 07/19/22 07:39 AST 19 U/L (0-32) 07/19/22 07:39 ALT 16 U/L (0-33) 07/19/22 07:39 Alkaline Phosphatase 137 U/L (35-105) H 07/19/22 07:39 Troponin T Baseline 6 ng/L (0-10) 07/19/22 07:39 Troponin T 120 Minute 6.00 ng/L (0-10) 07/19/22 09:39 Delta Troponin T 0 ABS# (0-10) 07/19/22 09:39 Total Protein 7.5 g/dL (6.6-8.7) 07/19/22 07:39 Albumin 4.4 g/dL (3.5-5.2) 07/19/22 07:39 Globulin 3.1 g/dL (1.3-4.6) 07/19/22 07:39 Discharge Plan Discharge Patient Disposition: Home Clinical Impression: Atypical chest pain, GERD (gastroesophageal reflux disease) Condition: Stable Prescriptions: New aspirin 81 mg tablet,delayed release (DR/EC) 81 mg PO DAILY Qty: 30 0RF Protonix 40 mg tablet,delayed release (DR/EC) 40 mg PO BID Qty: 60 0RF Discontinued omeprazole 20 mg capsule,delayed release(DR/EC) 20 mg PO DAILY No Action duloxetine [Cymbalta] 30 mg capsule,delayed release(DR/EC) 30 mg PO DAILY MDD see pharmacy comment venlafaxine [Effexor XR] 150 mg Capsule,Extended Release 24hr 150 mg PO DAILY ibuprofen 800 mg tablet 800 mg PO Q8H PRN (Reason: pain) Qty: 20 0RF Discharge Orders: Discharge ED (Routine); Ordered 07/19/22 Ordered By: Yo Cruz Referrals: Mckayla Menjivar FNP [Primary Care Provider] - Discharge Diet: Usual diet Discharge Activity: Limit activity as instructed Patient Instructions: Opioid Safety, Pain Management Activity Restrictions/Additional Instructions: You are seen for atypical chest pain in the emergency room. Your cardiac enzymes and EKG did not show any acute changes. Would recommend you stop the omeprazole and change to pantoprazole 40 mg twice daily. Also start a baby aspirin daily Case management will make arrangements for an outpatient Lexiscan sestamibi stress test. 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
[2022-07-19 07:57] LABS: Basophils # 0.1 10^3/uL (0.0-0.1); Basophils % 1.1 %; Eosinophils # 0.1 10^3/uL (0.0-0.8); Eosinophils % 1.7 %; Hematocrit 44.8 % (37.0-47.0); Hemoglobin 14.5 g/dL (11.5-15.3); Lymphocytes # 2.5 10^3/uL (0.8-4.8); Lymphocytes % 37.6 %; Mean Corpuscular HGB Conc 32.4 g/dL (30.0-36.0); Mean Corpuscular Hemoglobin 28.7 pg (28.0-34.0); Mean Corpuscular Volume 88.5 fl (81-99); Mean Platelet Volume 10.3 fL (7.4-10.4); Monocytes # 0.5 10^3/uL (0.2-0.9); Monocytes % 7.2 %; Neutrophils % 52.2 %; Nucleated Red Blood Cells % 0 %; Platelet Count 274 10^3/cmm (130-400); Red Blood Count 5.06 10^6/uL (4.1-5.3); Red Cell Distribution Width 12.8 % (12.1-15.1); White Blood Count 6.5 10^3/uL (4.0-10.0)
[2022-07-19] MEDS: aspirin 81 mg Chew Tablet 324 MG PO (08:12)
[2022-07-19 08:16] LABS: Troponin(5th) Baseline 6 ng/L (0-10)
[2022-07-19 08:17] LABS: Alanine Aminotransferase 16 U/L (0-33); Albumin Level 4.4 g/dL (3.5-5.2); Alkaline Phosphatase 137 U/L (35-105); Anion Gap 15.2 (5-19); Aspartate Amino Transferase 19 U/L (0-32); Blood Urea Nitrogen 15 mg/dL (8-23); Calcium 9.5 mg/dL (8.5-10.5); Carbon Dioxide 26 mmol/L (22-29); Chloride 102 mmol/L (98-107); Creatinine Clr Calc Pharmacy 57.9006; Globulin 3.1 g/dL (1.3-4.6); Glomerular Filtration Rate 55.8 mL/min (90-130); Glucose 136 mg/dL (65-115); Osmolality Calculated 293 mOsm/kg (285-295); Potassium 3.2 mmol/L (3.5-5.1); Sodium 140 mmol/L (136-145); Total Bilirubin 0.3 mg/dL (0.15-1.2); Total Protein 7.5 g/dL (6.6-8.7)
--- NOTE | 2022-07-19 09:23 | ECG_ITS ---
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 Measurements Intervals Ball Rate: 83 P: 52 TN: 168 QRS: 41 QRSD: 74 T: 45 QT: 344 QTc: 405 Interpretive Statements SINUS RHYTHM Compared to ECG 07/19/2022 07:26:13 No significant changes Electronically Signed On 07-19-2022 15:25:00 CDT by Florencio Starkey M.D. [id number]
[2022-07-19 11:24] LABS: Troponin 5 2HR Delta 0 ABS# (0-10)
== END 2022-07-19 12:48 | disposition home or self-care (01) ==
PROVIDERS: Emergency Provider Family Medicine; PCP Nurse Practitioner Family
DX: R07.89 Other chest pain (principal); K21.9 Gastro-esophageal reflux disease without esophagitis
CPT/HCPCS: 71045; 80053; 84484; 85025; 93005; 99285

== ENCOUNTER 2022-08-22 11:21 | Outpatient (CLI) | payer MEDICARE, SELFPAY ==
--- NOTE | 2022-08-22 | MR_ITS ---
WS: [id number] MRI LUMBAR SPINE NONCONTRAST HISTORY: low back pain COMPARISON: 04/14/2022 TECHNIQUE: Sagittal and axial multisequence imaging is submitted. Normal thoracic alignment. Patient has a known fat signal mass which is elliptical in shape posterior to the thoracic cord at th e T12 level. Mass extends over length of 2.5 cm x 0.9 cm in anterior posterior diameter. Not signific antly changed on the prior study. There is suppression of signal within the mass on the STIR sequence s suggesting this is a fat containing tumor. There is mild mass effect and anterior displacement of t he conus. L4 anterolisthesis by 3.7 mm similar to the prior study. Moderate disc space narrowing and desiccatio n at L4-5. No acute fractures. Conus terminates normally at L1. L1-L2: Normal. L2-L3: Mild annular disc bulging with ligamentum flavum and facet arthritis. Central annular fissure. Very mild encroachment and narrowing of the subarticular recesses. L3-L4: Moderate asymmetric disc bulging with marked ligamentum flavum and facet arthritis. LEFT parac entral disc protrusion is identified. Moderate central with bilateral subarticular recess and mild fo raminal stenosis. Most significant encroachment upon the traversing L4 nerve roots. L4-L5: Diffuse annular disc bulging with marked ligamentum flavum and facet arthritis. Central disc p rotrusion with mild extrusion deforming the thecal sac. Moderate to severe central with bilateral sub articular recess and moderate foraminal stenosis. Mild progression since the prior study. L5-S1: No stenosis. Paravertebral soft tissues are normal. MR/MR lumbar spine wo con* [id number] IMPRESSION: 1. Grade 1 L4 anterolisthesis similar to the prior studies. 2. Moderate to severe central with bilateral subarticular recess and moderate foraminal stenosis at L4-5. Mild progression since the prior study of 2. Most significant encroachment upon the traversing L5 nerve roots. 3. Moderate central with bilateral subarticular recess and mild foraminal sten osis at L3-4. Most significant encroachment upon the traversing L4 nerve roots. 4. Mild encroachment upon the subarticular recesses at L2-3. 5. 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
== END 2022-08-22 11:22 | disposition home or self-care (01) ==
PROVIDERS: PCP Nurse Practitioner Family; Visit Provider Orthopaedic Surgery
DX: M48.061 Spinal stenosis, lumbar region without neurogenic claudication (principal)
CPT/HCPCS: 72148

== ENCOUNTER 2022-09-02 13:38 | Outpatient (CLI) | payer MEDICARE, SELFPAY ==
--- NOTE | 2022-09-02 13:49 | MR_ITS ---
WS: [id number] MRI THORACIC SPINE with and without contrast. HISTORY: low back pain, DDD, lumbar stenosis COMPARISON: Prior MRI lumbar spine 04/14/2022, 08/22/2022 TECHNIQUE: Multiplanar sequences are performed in sagittal and axial planes. MultiHance 19 mL IV. Normal thoracic alignment. No marrow edema or fracture. Elliptical shaped mass noted posterior to T12 is reidentified. Recently described on prior MRI from and 04/14/2022. Additional imaging with postcontrast injection today. There is mild peripher al enhancement of this mass. This mass is intradural but extramedullary. There is mild displacement u avtar the conus. Mass extends over a length of 2.5 cm x 0.9 cm. Mass contains macroscopic fat. Conus is being slightly displaced anteriorly by the mass. T10-11: Facet joint arthropathy encroaching into the thecal sac. No significant stenosis. T11-12: Normal. MR/MR thoracic spine wo/w [id number] IMPRESSION: 1. 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 Mass jennifer sures 2.5 cm in length by 0.9 cm anterior posterior. Mild peripheral enhancemen t. Most consistent with epidermoid versus lipoma. Macroscopic fat. 2. No additional masses are identified. No cord compression.
[2022-09-02] MEDS: gadobenate dimeglumine 20 mL vial IV (13:58)
== END 2022-09-02 13:39 | disposition home or self-care (01) ==
LOC: RAD 13:44
PROVIDERS: PCP Nurse Practitioner Family; Visit Provider Physician Assistant
DX: M51.37 Other intervertebral disc degeneration, lumbosacral region (principal); M43.16 Spondylolisthesis, lumbar region; M48.062 Spinal stenosis, lumbar region with neurogenic claudication
CPT/HCPCS: 72157; A9577

== ENCOUNTER → 2022-09-02 13:45 | Outpatient (BNVA) | payer MEDICARE, SELFPAY | PROVIDERS: PCP Nurse Practitioner Family; Visit Provider Orthopaedic Surgery | DX: M48.062 Spinal stenosis, lumbar region with neurogenic claudication (principal); M51.37 Other intervertebral disc degeneration, lumbosacral region | CPT/HCPCS: 72157; 99214; A9577 ==

== ENCOUNTER → 2022-09-10 10:57 | Outpatient (BNVA) | payer MEDICARE, SELFPAY | PROVIDERS: PCP Nurse Practitioner Family; Visit Provider Clinical Nurse Specialist Adult Health | DX: Z01.818 Encounter for other preprocedural examination (principal) | CPT/HCPCS: 80048; 85025 ==

== ENCOUNTER 2022-09-19 07:27 | Day surgery (SDC) | payer MEDICARE, SELFPAY ==
[2022-09-12 08:37] VITALS: BMI 32.5
--- NOTE | 2022-09-12 08:55 | ANES.PREANE2 ---
Pre-Anesthetic Assessment Height/Weight: Height 1.6 m Weight 83.461 kg Operation Date: 09/19/22 10:50 Proposed Procedures p Bilateral Minimally Invasive Lumbar Decompression:77810,86170,M48.062(Bilateral) - Cristóbal Redd DO Familial anesthetic complications: 1982 had a little trouble waking up after hysterectomy Social No alcohol and No tobacco Exam alert, oriented x 3, clear to auscultation bilaterally and regular rate & rhythm Airway Mallampati: Class II Dentition: full GI Gastroesophageal Reflux Disease Anesthetic Plan ASA status: 2 Anesthesia: General Risk of > 500 ml blood loss (7ml/kg in children): No Medications/Allergies Home Medications Medication Instructions Recorded Confirmed Last Taken Type venlafaxine 150 mg 150 mg PO DAILY 01/05/20 09/12/22 09/12/22 History capsule,extended release 24 hr (Effexor XR) ibuprofen 800 mg tablet 800 mg PO Q8H PRN pain #20 tabs 01/06/20 09/12/22 09/12/22 Rx aspirin 81 mg tablet,delayed 81 mg PO DAILY #30 tabs 07/19/22 09/12/22 09/12/22 Rx release pantoprazole 40 mg tablet,delayed 40 mg PO BID #60 tabs 07/19/22 09/12/22 09/12/22 Rx release (Protonix) duloxetine 30 mg capsule,delayed 30 mg PO BID 09/10/22 09/12/22 09/12/22 History release (Cymbalta) gabapentin 300 mg capsule 300 mg PO TID 09/10/22 09/12/22 09/12/22 History Allergies Allergy/AdvReac Type Severity Reaction Status Date / Time No Known Allergies Allergy Verified 09/12/22 08:33 PFSH Anesthesia Medical History Depression GERD (gastroesophageal reflux disease) Surgical History Hx of hysterectomy Hx of tonsillectomy Family History Denies family history of Diabetes Clotting disorder Anesthesia complication Bleeding disorder Hypertension Stroke Social History Smoking and tobacco status: never smoked Alcohol intake: never Data Anesthesia Cardiac Studies: No Data to Display
[2022-09-19] VITALS (16 sets, daily range): BP systolic 112–177; BP diastolic 57–99; PULSE 86–98; RESP 15–18; TEMP 36.4–36.8; O2SAT 91–100
--- NOTE | 2022-09-19 | XR_ITS ---
WS: [id number] Lumbar spine, C-arm fluoroscopy, 09/19/2022 Clinical Data: L3-4; L4-5 decompression Comparison: None. Findings: Dr. Redd performed a lumbar decompression. XR/XR lumbar spine 1V [id number] Impression: Lumbar decompression.
[2022-09-19] MEDS: sodium chloride 0.9% 1,000 ML 30 ML IV (07:43)
--- NOTE | 2022-09-19 07:58 | W.PM.OPSUD ---
Surgery/Procedure H&P Update DATE OF PROCEDURE: September 19, 2022 DATE H&P PERFORMED: 09/02/22 H&P UPDATE INFORMATION: I have reviewed H&P completed within last 30 days, I have examined patient prior to procedure and No changes to prior documentation PREOP DIAGNOSIS: Lumbar stenosis with neurogenic claudication PLANNED PROCEDURE: Operation Date: 09/19/22 09:10 Proposed Procedures p Bilateral Minimally Invasive Lumbar Decompression L 3-4, L 4-5: 92404,37618,M48.062(Bilateral) - Cristóbal Redd DO
--- NOTE | 2022-09-19 08:11 | P.ANESUD_ITS ---
Pre-Anesthetic Update Pre-Anesthetic Assessment: Date of Surgery/Procedure: 09/19/22 Preop Micki gnosis: Lumbar stenosis with neurogenic claudication Proposed Procedure: Operation Date: 09/19/22 09:10 Proposed Procedures p Bilateral Minimally Invasive Lumbar Decompression L 3-4, L 4-5: 32687,87954,M48.062(Bilateral) - Cristóbal Redd, DO Any changes to Pre-Anesthetic Assessment?: No Last Intake: Intake Last Liquid Date 09/18/22 Last Liquid Time 20:30 Last Solid Date 09/18/22 Last Solid Time 20:30 Vitals: Temperature 97.7 F 09/19/22 07:38 Temperature Source Temporal Artery S can 09/19/22 07:38 Pulse Rate 98 09/19/22 07:38 Respiratory Rate 16 09/19/22 07:38 Blood Pressure 177/99 09/19/22 07:38 Blood Pressure Zuleyka n 125 09/19/22 07:38 Pulse Oximetry 97 09/19/22 07:38 Oxygen Delivery Me thod Room Air 09/19/22 07:38 Exam: Pre-Anes Outpt Exam: alert, oriented x 3, clear to auscultation bilaterally and regular rate & rhythm Cardiac Studies: No Data to Display
[2022-09-19] MEDS: ceFAZolin 2,000 MG in sodium chloride 0.9% (plus) 50 ML 100 MG IV (08:29)
[2022-09-19] MEDS: lidocaine-epi 2% 20 mL INJ INJECTION (09:00)
--- NOTE | 2022-09-19 09:53 | PC.NURSE ---
Pt arrived to PACU, resting comfortably, O2 at 6L/min via simple mask. Dressing to lower back C/D/I, bilateral LE p/w/d, cap refill <3 seconds, good pedal pulses, able to move all extremities.
--- NOTE | 2022-09-19 10:13 | PM.OP ---
Operative Report Date of procedure: September 19, 2022 Pre-op diagnosis: Preop Diagnosis Lumbar stenosis with neurogenic claudication Post-op diagnosis: same Procedure done: 1. L3/4 laminectomy with partial facetectomies 2. L4/5 laminectomy with partial facetectomies Surgeon: Cristóbal Redd Medical Officer Psychiatry: Tate Sheets Medical Officer Psychiatry: The surgical scrub technologist, Tate Sheets, PAC was needed for his expertise under the microscope. He was important and necessary throughout the procedure to complete in a safe and timely manner. He assisted with patient positioning prepping and draping tissue retraction suctioning of the operative field protection of the dural sac and tissue closure Estimated blood loss (mL): 20 Procedure: 1. L3/4 laminectomy with partial facetectomies 2. L4/5 laminectomy with partial facetectomies Patient is brought to the operative suite. After undergoing anesthesia they are placed in the prone position. All areas of impingement are well padded. Patient is then prepped and draped in the normal sterile fashion. A skin incision is made over the L3/4 level. This is confirmed under c-arm guidance. A series of dilators are passed and the tubular retractor is docked on the L3 lamina. A bovie is used to clear the soft tissue off the lamina and the L 3/4 facet joint. A high speed jagjit is then used to perform the laminectomy and take down the medial aspect of the L 3/4 facet joint. A kerrison rongeure was then used to take down the remaining lamina and smooth the edged of the laminectomy up to the point where the ligamentum flavum attaches. Attention was then brought to the medial aspect of the facet joint. The remaining medial aspect of the superior and inferior aspect of the facet joint were taken down with the kerrison from the pedicle of L3 to L 4. The facet joint had significant hypertrophy. Attention was then brought to the Ligamentum Flavum. The ligament was taken down from the lamina of L3 to L4 and out medially to the remaining facet joint. The ligament was thick. The dura was then exposed. The dura was in good repair. The L3 nerve was then traced with a curette out the L3/4 foramen and found to be adequately decompressed. The L4 nerve was traced with a curette around the L4 pedicle. The lateral recess was opened with a kerrison helping to further decompress the L4 nerve. The tubular retractor was then tilted to the contralateral side. The bovie was used to take down the soft tissue on the spinous process. The high speed jagjit was used to take down the spinous process and then the contralateral lamina of L3. The kerrison rongeur was used to take down the remaining lamina to the point where the ligamentum flavum attached and the ligamentum flavum was taken down from L3 to L4. The kerrison rongeur was then used to reach across and take down the medial aspect of the contralateral L3/4 facet joint.The currete was used to trace the contralateral L3 nerve out the L3/4 foramen to make sure it was decompressed adequatesly and the L4 was traced around the L4 pedicle. The lateral recess was opened further with the kerrison to ensure the L4 is adequately decompressed. Wound is then irrigated copiously with saline and surgiflo is used to stop any bleeding. The tubular retractor is removed and the A skin incision is made over the L4/5 level. This is confirmed under c-arm guidance. A series of dilators are passed and the tubular retractor is docked on the L4 lamina. A bovie is used to clear the soft tissue off the lamina and the L 4/5 facet joint. A high speed jagjit is then used to perform the laminectomy and take down the medial aspect of the L 4/5 facet joint. A kerrison rongeure was then used to take down the remaining lamina and smooth the edged of the laminectomy up to the point where the ligamentum flavum attaches. Attention was then brought to the medial aspect of the facet joint. The remaining medial aspect of the superior and inferior aspect of the facet joint were taken down with the kerrison from the pedicle of L4 to L 5. The facet joint had significant hypertrophy. Attention was then brought to the Ligamentum Flavum. The ligament was taken down from the lamina of L4 to L5 and out medially to the remaining facet joint. The ligament was thick. The dura was then exposed. The dura was in good repair. The L4 nerve was then traced with a curette out the L4/5 foramen and found to be adequately decompressed. The L5 nerve was traced with a curette around the L5 pedicle. The lateral recess was opened with a kerrison helping to further decompress the L5 nerve. The tubular retractor was then tilted to the contralateral side. The bovie was used to take down the soft tissue on the spinous process. The high speed jagjit was used to take down the spinous process and then the contralateral lamina of L4. The kerrison rongeur was used to take down the remaining lamina to the point where the ligamentum flavum attached and the ligamentum flavum was taken down from L4 to L5. The kerrison rongeur was then used to reach across and take down the medial aspect of the contralateral L4/5 facet joint.The currete was used to trace the contralateral L4 nerve out the L4/5 foramen to make sure it was decompressed adequatesly and the L5 was traced around the L5 pedicle. The lateral recess was opened further with the kerrison to ensure the L5 is adequately decompressed. Wound is then irrigated copiously with saline and surgiflo is used to stop any bleeding. The tubular retractor is removed and the wound is closed with vicryl and monocryl suture. Glue is then used to protect the wound. A sterile dressing is then placed. Patient was then placed in the supine position and transferred to the PACU in stable condition.
[2022-09-19] MEDS: fentaNYL 50 mcg/mL INJ 2mL IVP ×2 (10:15→10:21)
--- NOTE | 2022-09-19 14:24 | ANE.PACU2 ---
Inpatient post-anesthesia follow up: Airway intact: Yes Vital signs: Temperature 97.5 F Pulse Rate 93 Respiratory Rate 16 Blood Pressure 135/81 Pulse Oximetry 94 Oxygen Delivery Me thod Room Air Oxygen Flow Rate 1 Fraction of Inspir ed Oxygen Hydration adequate: Yes Nausea and vomiting: No Pain level: 3 Mental status: Baseline
== END 2022-09-19 11:20 | disposition home or self-care (01) ==
PROVIDERS: PCP Nurse Practitioner Family; Visit Provider Orthopaedic Surgery
PROC: (CPT 63005; principal; 2022-09-19 08:40)
DX: M48.062 Spinal stenosis, lumbar region with neurogenic claudication (principal); K21.9 Gastro-esophageal reflux disease without esophagitis; F32.A Depression, unspecified
CPT/HCPCS: 63047; 63048; 72020; 76000; J0690; J1100; J2370; J2405; J2704; J2710; J3010; J3490; J7030

== ENCOUNTER → 2022-10-07 09:49 | Outpatient (BNVA) | payer MEDICARE, SELFPAY | PROVIDERS: PCP Nurse Practitioner Family; Visit Provider Physician Assistant | DX: Z98.890 Other specified postprocedural states (principal); M43.16 Spondylolisthesis, lumbar region; M51.37 Other intervertebral disc degeneration, lumbosacral region | CPT/HCPCS: 99024 ==

== ENCOUNTER 2022-11-12 11:39 | Outpatient (CLI) | payer MEDICARE, SELFPAY ==
--- NOTE | 2022-11-12 11:53 | MM_ITS ---
WS: [id number] BILATERAL 3D TOMOSYNTHESIS DIGITAL SCREENING MAMMOGRAM WITH CAD CLINICAL INFORMATION: SCREENING HISTORY: Screening mammogram. No current complaints. COMPARISON: 2020 TECHNIQUE: Bilateral CC and MLO views. FINDINGS: Fatty-replaced breasts bilaterally. No suspicious focal mass, asymmetry, calcifications, or back end architect ural distortion. No evidence of malignancy. MM/[place] [id number] IMPRESSION: BI-RADS: 1-Negative FOLLOW UP: 1 Year Follow-up Recommend return to annual screening mammography.
== END 2022-11-12 11:40 | disposition home or self-care (01) ==
LOC: RAD 11:42 → MOBLMAM 11:51
PROVIDERS: PCP Nurse Practitioner Family; Visit Provider Nurse Practitioner Family
DX: Z12.31 Encounter for screening mammogram for malignant neoplasm of breast (principal)
CPT/HCPCS: 77063; 77067

== ENCOUNTER → 2022-11-19 13:49 | Outpatient (BNVA) | payer MEDICARE, SELFPAY | PROVIDERS: PCP Nurse Practitioner Family; Visit Provider Physician Assistant | DX: Z98.890 Other specified postprocedural states (principal); C72.0 Malignant neoplasm of spinal cord | CPT/HCPCS: 99024 ==

== ENCOUNTER 2024-02-05 06:56 | Outpatient (CLI) | payer MEDICARE, SELFPAY ==
--- NOTE | 2024-02-05 07:17 | MR_ITS ---
WS: [id number] MRI RIGHT SHOULDER NONCONTRAST TECHNIQUE: Sagittal T2, coronal T1, T2 and proton density imaging. Axial gradient PDE imaging. CLINICAL INFORMATION: PARESTHESIA OF THE SKIN, PAIN IN RIGHT SHOULDER COMPARISON: None. FINDINGS: Moderate degenerative arthritis AC joint with fluid and edema. Associated synovial thickening. Mild d ownsloping acromion with mild narrowing of the subacromial space. Slight impingement distal supraspin atus. Small amount of subacromial subdeltoid fluid. Chronic thinning of the supraspinatus with tendin opathy and small partial-thickness tears distally extending to the insertion supraspinatus. No tendo n retraction. Infraspinatus is intact. Tiny intrasubstance tear in the infraspinatus at the myotendin ous junction. Tendinopathy distal infraspinatus. Normal teres minor. Subscapularis tendon appears intact. Tiny biceps tendon within the bicipital groo ve. Tiny intra-articular biceps tendon. Moderate to advanced degenerative narrowing of the glenohumeral articulation. Normal bone marrow sign al in the humerus and glenoid. No acute fractures. MR/MR shoulder RT wo con* [id number] IMPRESSION: 1. Moderate joint arthritis AC joint with fluid and edema with associated syno vial thickening. Small amount of subacromial subdeltoid fluid 2. Mild narrowing of the subacromial space with impingement distal supraspinat us. Partial thickness tear in the distal supraspinatus extending to the inserti on. No tendon retraction. 3. Tendinopathy distal infraspinatus with tiny tear at the myotendinous juncti on. 4. Rotator cuff is otherwise intact. 5. Tiny biceps tendon within the bicipital groove. Intra-articular biceps tend on appears intact. 6. Moderate to advanced degenerative narrowing of the glenohumeral articulatio n.
== END 2024-02-05 06:57 | disposition home or self-care (01) ==
LOC: RAD 06:56
PROVIDERS: PCP Nurse Practitioner Family; Visit Provider Nurse Practitioner Family
DX: S46.011A Strain of muscle(s) and tendon(s) of the rotator cuff of right shoulder, initial encounter (principal); M19.011 Primary osteoarthritis, right shoulder; M75.91 Shoulder lesion, unspecified, right shoulder; R20.2 Paresthesia of skin; R20.0 Anesthesia of skin; X58.XXXA Exposure to other specified factors, initial encounter
CPT/HCPCS: 73221

== ENCOUNTER → 2024-03-17 07:54 | Outpatient (BNVA) | payer MEDICARE, SELFPAY | PROVIDERS: PCP Nurse Practitioner Family; Visit Provider Student in an Organized Health Care Education/Training Program | DX: M25.511 Pain in right shoulder (principal); M25.811 Other specified joint disorders, right shoulder; M75.41 Impingement syndrome of right shoulder | CPT/HCPCS: 20610; 73030; 99204; J3301 ==

== ENCOUNTER → 2024-06-21 08:01 | Outpatient (BNVA) | payer MEDICARE, SELFPAY | PROVIDERS: Visit Provider Student in an Organized Health Care Education/Training Program | DX: M75.41 Impingement syndrome of right shoulder (principal) | CPT/HCPCS: 20610; 99213; J3301 ==

== ENCOUNTER 2024-10-04 20:00 | Outpatient (CLI) | payer MEDICARE, SELFPAY | END 2024-10-04 20:01 | disposition home or self-care (01) | LOC: SLEEP 10-05 04:52 | PROVIDERS: PCP Nurse Practitioner Family; Visit Provider Nurse Practitioner Family | DX: G47.33 Obstructive sleep apnea (adult) (pediatric) (principal) | CPT/HCPCS: 95811 ==

== ENCOUNTER 2025-02-07 06:27 | Emergency (ER) | payer MEDICARE, SELFPAY ==
[2025-02-07 06:37] VITALS: BP 169/107; PULSE 98; RESP 17; TEMP 36.7; O2SAT 97; BMI 34.5
--- OUTSIDE RECORDS SUMMARY | 2025-02-07 06:37 | XMS_ITS | Clinical Summary ---
Author Organization [facility] Address [address] [address] Phone Care Team Providers Care [employer] [facility] Name Role Phone Mckayla Menjivar DONNA Primary Care Provider [phone] Allergies No known active allergies Medications DULoxetine (CYMBALTA) 30 mg Capsule, Delayed Release(E.C.) Take 30 mg by mouth daily. Active pantoprazole (PROTONIX) 40 mg Tablet, Delayed Release (E.C.) Take 40 mg by mouth daily. Active venlafaxine (EFFEXOR XR) 150 mg Extended Release 24 hour capsule Take 150 mg by mouth daily. Active ALPRAZolam (XANAX) 0.5 mg tablet Take 0.5 mg by mouth nightly as needed for Anxiety. 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 file Not on file Not on rashaad e Last Filed Vital Signs Vital Sign Reading Time Taken Comments Blood Pressure 145/86 12/19/2020 8:30 PM CDT Pulse 85 12/19/2020 8:30 PM CDT Temperature 36.9 C (98.5 F) 12/19/2020 8:30 PM CDT Respiratory Rate 16 12/19/2020 8:30 PM CDT Oxygen Saturation 97% 12/19/2020 8:30 PM CDT Inhaled Oxygen Concentration - - Weight 76.9 kg (169 lb 8 oz) 12/18/2020 9:24 PM CDT Height 157.5 cm (5' 2 ) 12/18/2020 9:24 PM CDT Body Mass Index 31 12/18/2020 9:24 PM CDT Plan of Treatment Health Maintenance Due Date Last Done Comments DTAP/TDAP/TD VACCINES (1 - Tdap) 1976 BREAST CANCER SCREENING 1997 COLORECTAL SCREENING 2002 Colorectal Cancer Screening 2002 FIT-DNA Q 3 years 2002 FIT/FOBT Q 1 year 2002 Flex Sig/CT Colonography Q 5 years 2002 PNEUMOCOCCAL VACCINE 50+ YEARS (1 of 1 - PCV) 07/28/19 08 ZOSTER VACCINE (1 of 2) 07/28/2007 OSTEOPOROSIS SCREENING 2022 INFLUENZA VACCINE (#1) 2024 RSV VACCINE (60+ or ) (1 - 1-dose 75+ series) [address] [place] [address] OPEN ACCESS O Advance Directives For more information, please contact: [phone] * Full Code (Latest Code Status on File) Date Activated Date Inactivated Comments 12/19/2020 6:05 AM 12/20/2020 11:49 AM Care Teams [employer] [facility] Relationship Specialty Start Date End Date Mckayla Menjivar FNP [address] [place] [id number] PCP - General Nurse Practitioner Family 12/18/20
--- OUTSIDE RECORDS SUMMARY | 2025-02-07 06:38 | XMS_ITS | Data Portability ---
Author Organization [facility] Address [address] [facility] [address] [place] [address] Care Team Providers Care Pocketed Spring Assembler Name Role Phone FISHMAN, MIREYA Primary Care Provider Assessment No assessment recorded. Plan of Treatment Reminders Order Date Submit Date Provider Last Modified By Organization Details Last Modified Time Details Appointments None recorded. Lab culture, urine 2024 025 [employer] [facility], [address] [place] [address], [facility] [address] [place], [address], 00:52:18 urinalysis, dipstick [address] ([facility]), [address] [place] [address], [address], 18:36:35 culture, urine 2024 025 [employer] [facility], [address] [place] [address], [facility] [address] [place], [address], 20:48:16 urinalysis, dipstick [address] ([facility]), [address] [place] [address], [address], 17:07:05 unlisted lab - sureswab(R) advanced vaginitis plus, tma 2024 025 [employer] [facility], [address] [place] [address], [address] [place], [address], 20:48:16 Referral physical therapist referral 2023 024 [email or web address], [address] [place], [address], 09:22:06 Procedures None recorded. Surgeries None recorded. Imaging None recorded. Medication Orders ciprofloxac in 250 mg tablet [address] [facility], [address], [address], 18:40:08 Flomax 0.4 mg capsule [address] [facility], [address], [address], 18:40:09 ketorolac 60 mg/2 mL intramuscul ar solution 2024 025 [email or web address] Not available 18:48:21 phenazopyri dine [address] [facility], [address], [place], [address], 05:02:00 fluconazole 150 mg tablet [address] [facility], [address], [address], 18:36:15 Mobic 7.5 mg tablet 2023 024 [facility], [address], [address], 16:33:47 tizanidine 2 mg tablet 2023 024 [facility], [address], [place], [address], 16:33:44 Patient TargetsNo targets recorded. Patient InstructionsNo instructions recorded. Reason for Referral Physical Therapist Referral for Pain of right shoulder joint Referring Physician: Jani Roman, Family Medicine, Encounter Date: 11/20/2023 Results Created Date Observation Date Name Description Value Unit Range Abnormal Flag Note LastModifiedBy Organization Detail LastModifiedTime 01/04/2001/05/2025 SURES WAB(R ) ADVAN CINDY VAGIN ITIS PLUS, TMA sureswab(R) adv bacterial vaginosis (bv), tma POSITI VE negati ve abnormal Not Available [address], [address], 01/05/2025 20:48:16 01/04/2001/05/2025 SURES WAB(R ) ADVAN CINDY VAGIN ITIS PLUS, TMA billy species NOT DETECT ED not detect ed normal Not Available [address], [address], 01/05/2025 20:48:16 01/04/2001/05/2025 SURES WAB(R ) ADVAN CINDY VAGIN ITIS PLUS, TMA billy glabrata NOT DETECT ED not detect ed normal [facility] [facility] speci es C. albic ans, C. tropi calis , C. parap vonnie is, and/o r C. dubli niens is can be detec alejandro, but not diffe renti ated, in the [place] da spp. resul t. Not Available [address], [address], 01/05/2025 20:48:16 01/04/20 25 01/05/2025 SURES WAB(R ) ADVAN CINDY VAGIN ITIS PLUS, TMA trichomonas vaginalis (TV), tma NOT DETECT ED not detect ed normal Not Available [facility] [address] [address] [place], [address], 01/05/2025 20:48:16 01/04/2001/05/2025 SURES WAB(R ) ADVAN CINDY VAGIN ITIS PLUS, TMA chlamydia trachomatis RNA, tma, urogenital NOT DETECT ED not detect ed normal Not Available [facility] [address] [address] [place], [address], 01/05/2025 20:48:16 01/04/2001/05/2025 SURES WAB(R ) ADVAN CINDY VAGIN ITIS PLUS, TMA neisseria gonorrhoeae RNA, tma, urogenital NOT DETECT ED not detect ed normal For addit ional elkin dent refer to https ://ed ati on.UReserv/f aq/FA Q154 (This link is being provi ded for jimmy ortiz/ janett haywood purpo ses only. ) Not Available [facility] [address] [address] [place], [address], 01/05/2025 20:48:16 01/04/2001/05/2025 CULTU RE, URINE , ROUTI NE culture, urine, routine SEE NOTE CULTU RE, URINE , ROUTI NE Micro Numbe r: [id number] Test Statu s: Final Speci men Sourc e: Urine , clean catch Speci men Quali ty: Adequ ate Resul t: Mixed genit al tracy isola alejandro. These super ficia l bacte britt are not indic ative of a urina ry tract infec tion. No furth er organ ism ident ifica tion is warra nted on this speci men. If clini clifford indic ated, recol lect clean -catc h, mid-s tream urine and trans demetrio immed iatel y to Urine Cultu re Trans port Tube. Not Available [facility] [address] [address] [place], [address], 01/05/2025 20:48:16 01/04/20 25 01/03/2025 urina lysis , dipst ick Leukocytes Trace Not Available [facility] ([facility]) [address] [place], [address], 01/03/2025 16:24:43 01/04/20 25 01/03/2025 urina lysis , dipst ick Nitrite negati ve Not Available [facility] ([facility]) [address] [place], [address], 01/03/2025 16:24:43 01/04/20 25 01/03/2025 urina lysis , dipst ick Urobilinogen 1 Not Available [facility] ([facility]) [address] [place], [address], 01/03/2025 16:24:43 01/04/20 25 01/03/2025 urina lysis , dipst ick Protein 30 Not Available [facility] ([facility]) [address] [place], [address], 01/03/2025 16:24:43 01/04/20 25 01/03/2025 urina lysis , dipst ick pH 5.0 Not Available [facility] ([facility]) [address] [place], [address], 01/03/2025 16:24:43 01/04/20 25 01/03/2025 urina lysis , dipst ick Blood Non-He molyze d: Trace Not Available [facility] ([facility]) [address] [place], [address], 01/03/2025 16:24:43 01/04/20 25 01/03/2025 urina lysis , dipst ick Specific Canyon 1.030 Not Available [facility] ( [facility]) [address] [place], [address], 01/03/2025 16:24:43 01/04/20 25 01/03/2025 urina lysis , dipst ick Ketone Trace Not Available [facility] ([facility]) [address] [place], [address], 01/03/2025 16:24:43 01/04/20 25 01/03/2025 urina lysis , dipst ick Bilirubin Small Not Available [facility] ([facility]) [address] [place], [address], 01/03/2025 16:24:43 01/04/20 25 01/03/2025 urina lysis , dipst ick Glucose Negati ve Not Available [facility] ([facility]) [address] [place], [address], 01/03/2025 16:24:43 01/04/20 25 01/03/2025 urina lysis , dipst ick Appearance Cloudy Not Available [facility] ([facility]) [address] [place], [address], 01/03/2025 16:24:43 01/04/20 25 01/03/2025 urina lysis , dipst ick Color Dark Yellow Not Available [facility] ([facility]) [address] [place], [address], 01/03/2025 16:24:43 02/04/20 25 02/03/2025 urina lysis , dipst ick Leukocytes Negati ve Not Available [facility] ([facility]) [address] [place], [address], 02/03/2025 18:30:35 02/04/20 25 02/03/2025 urina lysis , dipst ick Nitrite positi ve Not Available [facility] ([facility]) [address] [place], [address], 02/03/2025 18:30:35 02/04/20 25 02/03/2025 urina lysis , dipst ick Urobilinogen .2 Not Available [facility] ([facility]) [address] [place], [address], 02/03/2025 18:30:35 02/04/20 25 02/03/2025 urina lysis , dipst ick Protein Negati ve Not Available [facility] ([facility]) [address] [place], [address], 02/03/2025 18:30:35 02/04/2002/03/2025 urina lysis , dipst ick pH 7.5 Not Available [facility] ([facility]) [address] [place], [address], 02/03/2025 18:30:35 02/04/20 25 02/03/2025 urina lysis , dipst ick Blood Negati ve Not Available [facility] ([facility]) [address] [place], [address], 02/03/2025 18:30:35 02/04/20 25 02/03/2025 urina lysis , dipst ick Specific Canyon 1.015 Not Available [facility] ( [facility]) [address] [place], [address], 02/03/2025 18:30:35 02/04/20 25 02/03/2025 urina lysis , dipst ick Ketone Negati ve Not Available [facility] ([facility]) [address] [place], [address], 02/03/2025 18:30:35 02/04/20 25 02/03/2025 urina lysis , dipst ick Bilirubin Negati ve Not Available [facility] ([facility]) [address] [place], [address], 02/03/2025 18:30:35 02/04/2002/03/2025 urina lysis , dipst ick Glucose Negati ve Not Available [facility] [address] [place], [address], 02/03/2025 18:30:35 02/04/2002/03/2025 urina lysis , dipst ick Appearance Clear Not Available [facility] ( [facility] [employer] [facility]) [address] [place], [address], 02/03/2025 18:30:35 02/04/2002/03/2025 urina lysis , dipst ick Color Yellow Not Available [facility] ([facility]) [address] [place], [address], 02/03/2025 18:30:35 Result Notes None recorded. Problems Name Problem SNOMED Code Status Onset Date Resolution Date Notes Provider Name and Address Organization Details Recorded Time Hyperten sive disorder 08065441 Active 2017 HYPERTEN JOSE; Recorded 12/04/19 18 5:27PM by Jeanne Morales CMT, Office Visit; Promoted ; acuity set as *; Not Available [facility] 3 03:13:00 Dietary manageme nt surveill ance Completed 201712/03/2017 DIETARY COUNSELI NG AND SURVEILL ANCE - Status is Inactive ; Recorded 12/04/19 18 5:27PM by Jeanne Morales CMT, Annotati on/Adden dum; Promoted ; acuity set as *; [facility] Available [facility] 03:13:04 Insomnia 528131982 Active 2017 INSOMNIA ; Recorded 12/04/19 18 5:27PM by Jeanne Morales CMT, Office Visit; Promoted ; acuity set as *; [facility] Available [facility] 03:13:04 Backache 418767086 Active 2017 CHRONIC BACK PAIN; Recorded 12/04/19 18 5:27PM by Jeanne Morales CMT, Office Visit; Promoted ; acuity set as *; Not Available [facility] 03:13:07 Problem Notes None recorded. Procedures Surgical History Date Name Laterality Status Provider Name and Address Organization Details Recorded Time [facility] 17:49:34 [facility] 17:49:57 open stone operation on kidney or renal pelvis [facility] 17:50:06 [facility] 17:50:10 Imaging Results None recorded. Procedure Notes None recorded. Medical Equipment None Reported. Allergies No known drug allergies Medications Name Sig Start Date Stop Date Status Note LastModified by Organization Details LastModified Time Flomax 0.4 mg capsule Take 1 capsule every day by oral route for 3 days. 2024 active Not Available Not Available Not Avai lable venlafaxi ne ER 75 mg capsule,e xtended release 24 hr take 1 capsule BY MOUTH EVERY DAY with 150mg DOSE 01/03 completed Not Available Not Available Not Available doxycycli ne hyclate 100 mg capsule 01/03 completed Not Available Not Available Not Available tizanidin e 2 mg tablet Take 1 tablet 3 times a day by oral route as needed. 01/03 completed Not Available Not Available Not Available ibuprofen 800 mg tablet three times daily, as needed 11/19 completed Not Available Not Available Not Available fluconazo le 150 mg tablet Take 1 tablet every day by oral route for 1 day. 02/03 completed Not Available Not Available Not Available phenazopy ridine 200 mg tablet Take 1 tablet 3 times a day by oral route for 2 days. 01/12 completed Not Available Not Available Not Available venlafaxi ne ER 150 mg capsule,e xtended release 24 hr TAKE ONE CAPSULE BY MOUTH DAILY 01/03 completed Not Available Not Available Not Available metronida zole 500 mg tablet Take 1 tablet twice a day by oral route for 7 days. 01/19 completed Not Available Not Available Not Available ciproflox acin 250 mg tablet Take 1 tablet every 12 hours by oral route for 7 days. 2024 active Not Available Not Available Not Avai lable meloxicam 7.5 mg tablet Take 1 tablet every day by oral route for 30 days. 01/03 completed Not Available Not Available Not Available Xanax 0.25 mg tablet TID/PRN 11/19 completed Needs appt before more refills Not Available Not Available Not Available pantopraz ole 40 mg tablet,de layed release TAKE ONE TABLET BY MOUTH DAILY active Not Available Not Available No t Available methylpre dnisolone 4 mg tablets in a dose pack 01/03 completed Not Available Not Available Not Available ketorolac 60 mg/2 mL intramusc ular solution Inject 2 mL by intramus cular route. 2024 active Not Available Not Available Not Avai lable hydroxyzi ne HCl 10 mg tablet TAKE 1 TO 2 TABLETS BY MOUTH THREE TIMES DAILY NEEDED FOR ANXIETY 01/03 completed Not Available Not Available Not Available Effexor XR daily 2017 active Not Available Not Available Not Avai lable Gavilax 17 gram/dose oral powder take 17gm BY MOUTH EVERY DAY 01/03 completed Not Available Not Available Not Available Probiotic active Not Available Not Gloria ilable Not Available Vitals Date Recorded Body height Body mass index (BMI) Body weight Oxygen saturation Oxygen saturation in Arterial blood by Pulse oximetry Heart rate Respiratory rate Body temperature Systolic And Diastolic Provider Name and Address Organization Details Last Updated DateTime 4 158.75 cm 33.5 kg/m2 48151.6 2 g 98 % 98 % 88 /min 16 /min 98.3 [degF] 144/94 mm[Hg] Hafsa Thorpe [facility] 17:54:01 Date Recorded Body height Body mass index (BMI) Body weight Oxygen saturation Oxygen saturation in Arterial blood by Pulse oximetry Heart rate Respiratory rate Body temperature Systolic And Diastolic Provider Name and Address Organization Details Last Updated DateTime 5 158.75 cm 34.2 kg/m2 86155.5 5 g 96 % 96 % 108 /min 18 /min 98.2 [degF] 180/110 mm[Hg] Blanca Ortega [facility] 16:33:03 Date Recorded Body height Body mass index (BMI) Body weight Body temperature Heart rate Oxygen saturation Oxygen saturation in Arterial blood by Pulse oximetry Systolic And Diastolic Provider Name and Address Organization Details Last Updated DateTime 5 158.75 cm 34.4 kg/m2 96950.1 4 g 98.5 [degF] 106 /min 98 % 98 % 158/92 mm[Hg] Janna Jm [facility] 5 18:35:18 Social History Question Answer Notes LastModified by [employer] Details LastModified Time Tobacco Smoking Status Never Smoker [facility] 11/20/2023 17:49:26 What Was The Date Of Your Most Recent Tobacco Screening? 02/03/2025 [email or web address] Information not available 02/03/2025 Sex: Unknown Functional Status Question Answer Note LastModified by [employer] Details LastModified Time Do you use any illicit or recreational drugs? No Information not available 11/20/2023 What is your level of alcohol consumption? None Information not available 11/20/2023 Mental Status None recorded. Family History Nothing Reported. Medical History Condition Response Coronary Artery Disease N Other N Gout N Kidney Stones N Blood Diseases N Hyperthyroidism N Breast Cancer N Blood Transfusion N Depression Y COPD N Lung Disease N Hypothyroidism N Developmental or Behavioral Disorders N Defects or Inherited Disease N Breast Problem N Difficulty Swallowing N Anesthesia Complications N Meniere's disease N Anxiety Disorder Y Muscle, Joint, or Bone Problems N Vision or Eye Problems N Arthritis N Polyps N Infertility N Cancer N Varicosities N Stroke N Endometriosis N Bladder or Kidney Problems N High Cholesterol N Liver Disease N Headaches N Fibromyalgia N Kidney Disease N Allergies/Hayfever N Heart Problems N Ear or Hearing Problems N Hospitalizations N Thyroid Problems N GI Problems N ADD/ADHD N Skin Problems N Eating Disorder N Anemia N Constipation N Mental Illness N Ovarian Cancer N Diabetes N Bedwetting N Seizures/Epilepsy N Tuberculosis N Eczema N Diverticulitis N Abuse/Domestic Violence N Asthma N Reflux/GERD Y Hepatitis N Heart Disease N Pulmonary Embolism N Pre-Eclampsia N Hypertension Y Chronic Ear Infections N Osteoporosis N Chicken Pox N Autism Spectrum Disorder (ASD) N Thrombophilias N Gynecological HistoryNo gynecological history recorded. Obstetrics History GPAL:G 0 P 0 0 0 0 Immunizations Vaccine Type Date Status Note Provider Nam e and Address Organization Details Recorded Time Influenza, split virus, trivalent, preservative 7 completed Hafsa Pliler null, [facility] 11/20/2023 17:46:58 Influenza, split virus, trivalent, PF 6 completed Hafsa Plricardo null, [facility] 11/20/2023 17:46:58 Influenza, split virus, trivalent, preservative 5 completed Hafsa Dasilvailer vanessa, [facility] 11/20/2023 17:46:58 Past Encounters Encounter ID Performer Location Encounter Start Date Encounter Closed Date Diagnosis/Indication Diagnosis SNOMED-CT Code Diagnosis ICD10 Code Diagnosis IMO Codes Diagnosis Note [id number] DONNA VALDEZ [facility] ([facility]) [address] [place] [address] 11/20/2023 17:45:32 11/20/2023 18:25:41 Pain of right shoulder joint 7440136592 7367292 M25.511 Discussed use of mobic, tizanidine , continue ice applicatio n for 20 minutes every 2 hours while awake, use pillows behind the shoulder at night. Physical Therapy referral sent. Pt has appt with PCP in Dec.02. Keep this appt as scheduled for re-evaluat ion. [id number] DONNA CAMACHO [facility] ([facility]) [address] [place] [address] 01/03/2025 16:20:48 01/03/2025 17:21:11 Dysuria 69062187 R30.0 39167 Urine culture ordered - will notify of any resultsEdu cated patient on increasing PO fluids of water, decreasing caffeine (coffee) and sugary drinks.Dis cussed importance of avoiding baths, scented soaps, douching, perfumes.E eturn to clinic if any changes, any worsening, any concernsPa tient verbalized understand ing of plan. Vaginal irritation 26050 6004 N89.8 192818 Will call with sureswab results. Will send in fluconazol e tab. May continue to use miconazole cream. [id number] DONNA VALDEZ [facility] ([facility]) [address] [place] [address] 02/03/2025 18:28:52 02/06/2025 10:46:28 Dysuria 81122200 R30.0 73010 Acute urin tin tract infection 161867713 N39.0 357690 Urine culture ordered - will notify of any resultsEdu cated patient on increasing PO fluids of water, decreasing caffeine (coffee) and sugary drinks.Dis cussed importance of avoiding baths, scented soaps, douching, perfumes.P atient verbalized understand ing of plan. Left flank pain 23808230 9 R10.A2 5380760 IM toradol administer ed today and will start on flomax due to left flank pain and hx of stones. Pt v/u if she develops fever, n/v, worsening pain then f/u in ER Health Concerns Section Related Observation LastModified by Organization Detai ls LastModified Time None Recorded Concern Status LastModified by Organization Details LastModified Time None Recorded Advance Directives Directive None Recorded Payers Insurance Date Sequence Insurance Name Policy Number Policy Saucedo Covered Member ID Saucedo Member ID Guarantor Name 02/03/2025 [place] - [facility] (MEDICARE) Michelle Polk Grace [id number] Michelle S Grace 02/03/2025 2 [employer] (MEDICARE SUPPLEMENT) Michelle Polk Grace [id number] Michelle Polk Grace 02/03/2025 1 [place] Michelle S Grace [id number] Michelle Edwards Notes Date Note Type Note Provider Name and Address Organization Details Recorded Time 11/20/2023 text/html ROS as noted in the HPI Pt presents with right shoulder pain that started last month after an accidental fall at home. The pain is keeping her up at night. Has been taking ibuprofen with limited to no relief of her symptoms. Pt is right handed. No prior surgical hx to this shoulder. Ice does help but heat worsens the symptoms. JANI ROMAN, [facility] [address] [place], [address], [facility], LNaila. 11/20/2023 18:14:44 01/03/2025 text/html Lower Urinary Tr act Symptoms (LUTS)Reported by PatientROS as noted in the HPI walk in patientpatient is here today for urinary frequency, urgency, and burning/pain that started 2 weeks ago. Patient complains of vaginal itching and inflammation as well. Has used monistat x 3 days as well as miconazole cream with no improvement of symptoms. ELSIE CURRY [address], [address], [facility], LMarioLMarioC. 01/03/2025 18:07:40 02/03/2025 text/html ROS as noted in the HPI walk in ptPt is having left sided back pain for 1 day. has been drinking apple cider vinegar and AZO. States she's had kidney stones in the past and this is very similar pain. No fever, weakness, nausea vomiting. Pushing fluids. JANI ROMAN [facility] [place], [address], [facility], LMarioLGris. 02/03/2025 18:45:57 OBGyn Episode No OBEpisode recorded.
--- OUTSIDE RECORDS SUMMARY | 2025-02-07 06:38 | XMS_ITS | Continuity of Care Document ---
Author Organization ALONZO Kelvin Bourgeois [facility] Jazmine, Anais, [facility] ([facility]) Address [address] [place] [address] Care Team Providers Care Top Taper Machine Name Role Phone FISHMAN, MIREYA Primary Care Provider [phone] Assessment No assessment recorded. Plan of Treatment Reminders Order Date Submit Date Provider Last Modified By Organization Details Last Modified Time Details Appointments None recorded. Lab culture, urine 2024 [employer] [facility], [address] [place] [address], [facility] [address] [place], [address], 00:52:18 urinalysis, dipstick 2024 [email or web address] [facility] ([facility]), [address] [place], [address], 18:36:35 Referral None recorded. Procedures None recorded. Surgeries None recorded. Imaging None recorded. Medication Orders ciprofloxac in 250 mg tablet 2024 [facility], [address], [place], [address], 18:40:08 Flomax 0.4 mg capsule 2024 [facility], [address], [place], [address], 18:40:09 ketorolac 60 mg/2 mL intramuscul ar solution 2024 025 [email or web address] Not available 18:48:21 Patient TargetsNo targets recorded. Patient InstructionsNo instructions recorded. Reason for Referral None Reported. Results Created Date Observation Date Name Description Value Unit Range Abnormal Flag Note LastModifiedBy Organization Detail LastModifiedTime 02/04/2002/03/2025 urina lysis , dipst ick Leukocytes Negati ve Not Available [facility] ([facility]) [address] [place], [address], 02/03/2025 18:30:35 02/04/2002/03/2025 urina lysis , dipst ick Nitrite positi ve Not Available [facility] ([facility]) [address] [place], [address], 02/03/2025 18:30:35 02/04/2002/03/2025 urina lysis , dipst ick Urobilinogen .2 Not Available [facility] ([facility]) [address] [place], [address], 02/03/2025 18:30:35 02/04/2002/03/2025 urina lysis , dipst ick Protein Negati ve Not Available [facility] ([facility]) [address] [place], [address], 02/03/2025 18:30:35 02/04/2002/03/2025 urina lysis , dipst ick pH 7.5 Not Available [facility] ([facility]) [address] [place], [address], 02/03/2025 18:30:35 02/04/2002/03/2025 urina lysis , dipst ick Blood Negati ve Not Available [facility] ([facility]) [address] [place], [address], 02/03/2025 18:30:35 02/04/2002/03/2025 urina lysis , dipst ick Specific [place] 1.015 Not Available [facility] ( [facility]) [address] [place], [address], 02/03/2025 18:30:35 02/04/20 25 02/03/2025 urina lysis , dipst ick Ketone Negati ve Not Available [facility] ([facility]) [address] [place], [address], 02/03/2025 18:30:35 02/04/2002/03/2025 urina lysis , dipst ick Bilirubin Negati ve Not Available [facility] ([facility]) [address] [place], [address], 02/03/2025 18:30:35 02/04/2002/03/2025 urina lysis , dipst ick Glucose Negati ve Not Available [facility] ([facility]) [address] [place], [address], 02/03/2025 18:30:35 02/04/2002/03/2025 urina lysis , dipst ick Appearance Clear Not Available [facility] [address] [place], [address], 02/03/2025 18:30:35 02/04/2002/03/2025 urina lysis , dipst ick Color Yellow Not Available [facility] [address] [place], [address], 02/03/2025 18:30:35 Result Notes None recorded. Problems Name Problem SNOMED Code Status Onset Date Resolution Date Notes Provider Name and Address Organization Details Recorded Time Hyperten sive disorder 98823999 Active 2017 JACI GARICA; Recorded 12/04/19 18 5:27PM by Jeanne Morales CMT, Office Visit; Promoted ; acuity set as *; Not Available [facility] 3 03:13:00 Dietary manageme nt surveill ance Completed 201712/03/2017 DIETARY COUNSELI NG AND SURVEILL ANCE - Status is Inactive ; Recorded 12/04/19 18 5:27PM by Jeanne Morales CMT, Annotati on/Adden dum; Promoted ; acuity set as *; Not Available [facility] 3 03:13:04 Insomnia 432779096 Active 2017 INSOMNIA ; Recorded 12/04/19 18 5:27PM by Jeanne Morales CMT, Office Visit; Promoted ; acuity set as *; Not Available [facility] 3 03:13:04 Backache 343242558 Active 2017 CHRONIC BACK PAIN; Recorded 12/04/19 18 5:27PM by Jeanne Morales CMT, Office Visit; Promoted ; acuity set as *; Not Available [facility] 3 03:13:07 Problem Notes None recorded. Procedures Surgical History Date Name Laterality Status Provider Name and Address Organization Details Recorded Time Total Hysterectomy completed [facility] 11/20/2023 17:49:34 radical excision of lymph nodes completed [facility] 11/20/2023 17:49:57 open stone operation on kidney or renal pelvis completed [facility] 11/20/2023 17:50:06 Back Surgery completed [facility] 11/20/2023 17:50:10 Imaging Results None recorded. Procedure [...] and Address Organization Details Last Updated DateTime 158.75 cm 34.4 kg/m2 29054.1 4 g 98.5 [degF] 106 /min 98 % 98 % 158/92 mm[Hg] Janna Jm [facility] 18:35:18 Social History Question Answer Notes LastModified by [employer] Details LastModified Time Tobacco Smoking Status Never Smoker [facility] 11/20/2023 17:49:26 What Was The Date Of Your Most Recent Tobacco Screening? 02/03/2025 [email or web address] Information not available 02/03/2025 Sex: Unknown Functional Status Question Answer Note LastModified by [employer]gae[employer] Details LastModified Time Do you use any illicit or recreational drugs? No Information not available 11/20/2023 What is your level of alcohol consumption? None Information not available 11/20/2023 Mental Status None recorded. Family History Nothing Reported. Medical History Condition Response Coronary Artery Disease N Gout N Other N Blood Diseases N Kidney Stones N Hyperthyroidism N Blood Transfusion N Breast Cancer N COPD N Lung Disease N Hypothyroidism N Depression Y Defects or Inherited Disease N Developmental or Behavioral Disorders N Breast Problem N Difficulty Swallowing N [...] split virus, trivalent, preservative 7 completed Hafsa Thorpe null, [facility] 11/20/2023 17:46:58 Influenza, split virus, trivalent, PF 6 completed Hafsa Pliler null, [facility] 11/20/2023 17:46:58 Influenza, split virus, trivalent, preservative 5 completed Hafsa Thorpe null, [facility] 11/20/2023 17:46:58 Past Encounters Encounter ID Performer Location Encounter Start Date Encounter Closed Date Diagnosis/Indication Diagnosis SNOMED-CT Code Diagnosis ICD10 Code Diagnosis IMO Codes Diagnosis Note [id number] DONNA VALDEZ [facility] ([facility]) [address] [place] [address] 02/03/2025 18:28:52 02/06/2025 10:46:28 Dysuria 18166328 R30.0 82857 Acute urin tin tract infection 936298674 N39.0 450155 Urine culture ordered - will notify of any resultsEdu cated patient on increasing PO fluids of water, decreasing caffeine (coffee) and sugary drinks.Dis cussed importance of avoiding baths, scented soaps, douching, perfumes.P atient verbalized understand ing of plan. Left flank pain 98817790 9 R10.A2 4298907 IM toradol administer ed today and will start on flomax due to left flank pain and hx of stones. Pt v/u if she develops fever, n/v, worsening pain then f/u in ER Health Concerns Section Related Observation LastModified by Organization Detai ls LastModified Time None Recorded Concern Status LastModified by Organization Details LastModified Time None Recorded Payers Encounter Date Sequence Insurance Name Policy Number Policy Saucedo Covered Member ID Saucedo Member ID Guarantor Name 02/03/2025 1 MEDICARE [place]: WPS Michelle Edwards [id number] Michelle Edwards 02/03/2025 2 [employer] (MEDICARE SUPPLEMENT) Michelle Edwards [id number] Michelle Edwards Notes Date Note Type Note Provider Name and Address Organization Details Recorded Time 02/03/2025 text/html ROS as noted in the HPI walk in ptPt is having left sided back pain for 1 day. has been drinking apple cider vinegar and AZO. States she's had kidney stones in the past and this is very similar pain. No fever, weakness, nausea vomiting. Pushing fluids. JANI ROMAN, [facility] [address] [place] [address], [address], [facility] 02/03/2025 18:45:57 OBGyn Episode No OBEpisode recorded.
--- NOTE | 2025-02-07 06:39 | ECG_ITS ---
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 Measurements Intervals [place] Rate: 87 P: 48 AR: 163 QRS: 32 QRSD: 94 T: 40 QT: 361 QTc: 437 Interpretive Statements SINUS RHYTHM Compared to ECG 07/19/2022 10:11:23 No significant changes Electronically Signed On 02-08-2025 16:55:24 CDT by Florencio Starkey M.D. [id number]
--- NOTE | 2025-02-07 06:43 | XR_ITS ---
WS: [id number] XR chest 1V portable [id number] REASON FOR EXAM: htn FINDINGS: Chest is unchanged compared to 07/19/2022. The heart and the mediastinum are within normal limits. Calcified granulomatous disease bilaterally. Eventration of the right hemidiaphragm. No acute pulmonary parenchymal or pleural abnormality is identified. XR/XR chest 1V portable [id number] IMPRESSION: Stable chest without acute abnormality.
--- NOTE | 2025-02-07 06:44 | CTR_ITS ---
PROCEDURE INFORMATION: Exam: CT Abdomen And Pelvis Without Contrast Exam date and time: 02/07/2025 6:51 AM Age: 69 years old Clinical indication: Abdominal pain; Flank; Left; Additional info: L flank pain TECHNIQUE: Imaging protocol: Computed tomography of the abdomen and pelvis without contrast. Radiation optimization: All CT scans at this facility use at least one of these dose optimization techniques: automated exposure control; mA and/or kV adjustment per patient size (includes targeted exams where dose is matched to clinical indication); or iterative reconstruction. COMPARISON: CT abdomen pelvis w con* [id number] 12/18/2020 3:51 PM RADIATION DOSE METRICS: Total DLP (mGy-cm): 846.08 FINDINGS: Liver: Liver measures 17 cm craniocaudal. Borderline mild hepatic steatosis. Gallbladder and biliary ducts: No calcified stones. No ductal dilation. Pancreas: Unremarkable. No ductal dilation. Spleen: Borderline mild splenomegaly. Punctate calcification likely reflecting a calcified granuloma. Adrenal glands: No mass. Kidneys and ureters: No calcified urolithiasis. No evidence of hydronephrosis or hydroureter. No overt evidence of a renal mass on noncontrast exam. Stomach and bowel: Small hiatal hernia. Otherwise unremarkable stomach. Nondistended bowel loops. No evidence of an active inflammatory process. Appendix: Appendix measures at the upper limits of normal however is gas containing and without significant periappendiceal inflammatory change. Intraperitoneal space: No free air. No significant fluid collection. There is hazy attenuation of the mesenteric fat with slight encapsulation hand interposed subcentimeter lymph nodes in the left paracentral abdomen. Vasculature: Atherosclerosis. No abdominal aortic aneurysm. Lymph nodes: No pathologically enlarged lymph nodes. Urinary bladder: Decompressed which limits evaluation. Reproductive: Surgically absent or atrophic uterus. Bones/joints: Degenerative changes of the spine. Grade 1 anterolisthesis of L4 on L5. Fat density lesion in the spinal canal of the level of T12 with a peripheral calcification, slightly increased in size now measuring 1.5 cm. No acute fracture. Soft tissues: Small fat containing periumbilical hernia. CT/CT kidney stone [id number] IMPRESSION: 1. No acute findings. Specifically, no evidence of obstructive uropathy. 2. Suggested mesenteric panniculitis, nonspecific. 3. Fat density lesion in the spinal canal at the level of T12, possibly a lipoma and now measuring 1.5 cm. This is slightly increased in size from CT dated 12/18/2020. Consider further evaluation with MRI depending on clinical context. 4. Additional chronic and incidental/ancillary findings as above.
--- NOTE | 2025-02-07 06:45 | W.ED.BACK ---
HPI - Back Pain/Injury General: Chief Complaint: Back Pain/Injury Stated Complaint: L lower back pain Time Seen by Provider: 02/07/25 06:37 Source: patient Mode of arrival: ambulatory Limitations: no limitations History of Present Illness: 69-year-old female states she been having left flank pain since . States she seen urgent care and told she had a UTI but she has had continued pain. States pain is very sharp in nature and rates it an 8 out of 10 had some nausea with the pain she denies any worse improved factors denies any pain with movement or palpation states she has had a history of kidney stones in the past. Associated symptoms: Reports nausea; Deny vomiting Related Data Home Medications ?Medication ?Instructions ?Recorded ?Confirmed venlafaxine 150 mg 150 mg PO DAILY 01/05/20 09/14/24 capsule,extended release 24 hr (Effexor XR) Previous Rx's ?Medication ?Instructions ?Recorded pantoprazole 40 mg tablet,delayed 40 mg PO BID #60 tabs 07/19/22 release (Protonix) hydrocodone 5 mg-acetaminophen 325 1 tab PO Q6H PRN pain #14 tabs 02/07/25 mg tablet Allergies Allergy/AdvReac Type Severity Reaction Status Date / Time No Known Allergies Allergy Verified 09/14/24 07:37 Review of Systems GI: Reports: nausea; Denies: vomiting : Reports: flank pain [facility] PFSH: Medical History (Updated 02/07/25 @ 09:14 by Mauricio Lopez MD) GERD (gastroesophageal reflux disease) Depression Surgical History Hx of hysterectomy Hx of tonsillectomy Family History Denies family history of Diabetes Clotting disorder Anesthesia complication Bleeding disorder Hypertension Stroke Social History Smoking and tobacco/nicotine status: never used tobacco/nicotine Alcohol intake: never Physical Exam Const: COMMON NORMALS: no acute distress, patient oriented x3 and healthy appearing HENMT: COMMON NORMALS: normocephalic and atraumatic HEAD & SCALP: normocephalic and atraumatic Eye: COMMON NORMALS: conjunctivae normal CONJUNCTIVA: Yes conjunctivae normal Neck/C-Spine: COMMON NORMALS: full ROM and supple Chest: COMMONS NORMALS: normal inspection of the chest and normal palpation of entire chest wall Resp: COMMON NORMALS: normal respiratory effort, No retractions, No use of accessory muscles and clear to auscultation bilaterally AUSCULTATION: clear to auscultation bilaterally Cardio: COMMON NORMALS: regular rate, regular rhythm and No murmurs present (Cardio) RATE: regular rate RHYTHM: regular rhythm GI: COMMON NORMALS: Normal to inspection, nondistended, normoactive bowel sounds present, Soft to palpation, non-tender and no masses PALPATION: Yes Soft to palpation Extremity: COMMON NORMALS: normal to inspection and full ROM Neuro: COMMON NORMALS: patient oriented x3, moves all extremities and no focal motor deficits Psych: COMMON NORMALS: mental status grossly normal, Normal thought process present and cooperative THOUGHT PROCESS: Normal thought process present Skin: COMMON NORMALS: no rashes or lesions noted and no wounds GENERAL SKIN EXAM: no rashes or lesions noted Course Vital Signs: Vital signs: Vital Signs Temperature 98.1 F 02/07/25 06:37 Pulse Rate 98 02/07/25 06:37 Respiratory Rate 17 02/07/25 06:37 Blood Pressure 169/107 02/07/25 06:37 Pulse Oximetry 97 02/07/25 09:26 Oxygen Delivery Me thod Room Air 02/07/25 09:26 MDM - Back Pain/Injury Medical Decision Making Patient presents with left flank pain along with some back pain. Differential included AAA, thoracic back pain, cord compression, renal colic. Patient CT scan showed no signs of kidney stones urinalysis showed no signs of infection no signs of pyelonephritis. Patient has no signs of AAA. 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 Patient has no neuro signs of cord compression no numbness or weakness pain has improved here. I did speak to her editorial specialist Dr. Morales who recommended follow-up with him outpatient and likely outpatient MRI. Do not feel that she needs an emergent MRI here she has no signs of cord compression we will prescribe her hydrocodone for home I did discuss the findings with her and her daughter and important follow-up and return instructions as well. Did go over her lab work which was all normal she is stable for discharge at this time Medical Records I reviewed the patient's medical records. Labs I reviewed the patient's lab results. 02/07/25 07:03 02/07/25 07:03 Radiology Impressions Chest X-Ray 02/07/25 06:43 IMPRESSION: Stable chest without acute abnormality. Abdomen/Pelvis CT 02/07/25 06:44 IMPRESSION: 1. No acute findings. Specifically, no evidence of obstructive uropathy. 2. Suggested mesenteric panniculitis, nonspecific. 3. Fat density lesion in the spinal canal at the level of T12, possibly a lipoma and now measuring 1.5 cm. This is slightly increased in size from CT dated 12/18/2020. Consider further evaluation with MRI depending on clinical context. 4. Additional chronic and incidental/ancillary findings as above. Laboratory Results WBC 5.52 10^3/uL (3.29-11.43) 02/07/25 07:03 RBC 4.58 10^6/uL (3.85-5.65) 02/07/25 07:03 Hgb 13.40 g/dL (11.27-16.99) 02/07/25 07:03 Hct 41.5 % (36-47) 02/07/25 07:03 MCV 90.6 fl (85-98) 02/07/25 07:03 MCH 29.3 pg (27-33) 02/07/25 07:03 MCHC 32.3 g/dL (30-55) 02/07/25 07:03 RDW 12.7 % (12.1-15.1) 02/07/25 07:03 Plt Count 264 10^3/cmm (157-399) 02/07/25 07:03 MPV 9.7 fL (7.4-10.4) 02/07/25 07:03 Neut % (Auto) 49.0 % 02/07/25 07:03 Lymph % (Auto) 39.7 % 02/07/25 07:03 [place] % (Auto) 7.2 % 02/07/25 07:03 Eos % (Auto) 2.5 % 02/07/25 07:03 Baso % (Auto) 1.4 % 02/07/25 07:03 Neut # (Auto) 2.70 10^3/uL (1.8-7.7) 02/07/25 07:03 Lymph # (Auto) 2.2 10^3/uL (0.8-4.8) 02/07/25 07:03 [place] # (Auto) 0.4 10^3/uL (0.2-0.9) 02/07/25 07:03 Eos # (Auto) 0.1 10^3/uL (0.0-0.8) 02/07/25 07:03 Baso # (Auto) 0.1 10^3/uL (0.0-0.1) 02/07/25 07:03 Nucleated RBC % (auto) 0 % 02/07/25 07:03 Nucleated RBCs # 0.0 /100WBC 02/07/25 07:03 Sodium 140 mmol/L (136-145) 02/07/25 07:03 Potassium 4.0 mmol/L (3.5-5.1) 02/07/25 07:03 Chloride 105 mmol/L (98-107) 02/07/25 07:03 Carbon Dioxide 24 mmol/L (22-29) 02/07/25 07:03 Anion Gap 15.0 (5-19) 02/07/25 07:03 BUN 15 mg/dL (8-23) 02/07/25 07:03 Creatinine 0.9 mg/dL (0.5-0.9) 02/07/25 07:03 GFR Calculation 62.5 mL/min (90-130) L 02/07/25 07:03 Glucose 111 mg/dL (65-115) 02/07/25 07:03 Calculated Osmolality 292 mOsm/kg (285-295) 02/07/25 07:03 Calcium 9.1 mg/dL (8.5-10.5) 02/07/25 07:03 Total Bilirubin 0.3 mg/dL (0.15-1.2) 02/07/25 07:03 AST 20 U/L (0-32) 02/07/25 07:03 ALT 12 U/L (0-33) 02/07/25 07:03 Alkaline Phosphatase 111 U/L (35-105) H 02/07/25 07:03 Total Protein 6.9 g/dL (6.6-8.7) 02/07/25 07:03 Albumin 4.2 g/dL (3.5-5.2) 02/07/25 07:03 Globulin 2.7 g/dL (1.3-4.6) 02/07/25 07:03 Lipase 40 U/L (13-60) 02/07/25 07:03 Urine Color Yellow (Yellow) 02/07/25 06:51 Urine Appearance Cloudy (CLEAR) A 02/07/25 06:51 Urine pH 6.0 (5-7) 02/07/25 06:51 Ur Specific [place] 1.023 (1.005-1.030) 02/07/25 06:51 Urine Protein Negative (Negative) 02/07/25 06:51 Urine Glucose (UA) Negative (Normal) 02/07/25 06:51 Urine Ketones Negative (Negative) 02/07/25 06:51 Urine Blood Negative (Negative) 02/07/25 06:51 Urine Nitrate Negative (Negative) 02/07/25 06:51 Urine Bilirubin Negative (Negative) 02/07/25 06:51 Urine Urobilinogen 0.2 mg/dL (Negative) 02/07/25 06:51 Ur Leukocyte Esterase Negative (Negative) 02/07/25 06:51 Urine RBC 0-4 /hpf (0-2) H 02/07/25 06:51 Urine WBC 0-4 /hpf (0-5) H 02/07/25 06:51 Ur Squamous Epith Cells 5-10 /hpf (0-5) H 02/07/25 06:51 Amorphous Sediment 2+ /hpf 02/07/25 06:51 Urine Bacteria Trace /hpf (NONE) 02/07/25 06:51 Urine Mucus Trace /hpf 02/07/25 06:51 All radiology interpretation(s) finalized by discharge EKG Data EKG 1: I personally reviewed and interpreted this EKG as follows: EKG interpretation date: 02/07/25 EKG interpretation time: 06:39 Interpretation: nsr hr [address] elevation qrs 94 qtc 406 Discharge Plan Discharge Patient Disposition: Home Clinical Impression: Back pain Qualifiers: Back pain location: thoracic back pain Chronicity: acute Back pain laterality: left Qualified Code(s): M54.6 - Pain in thoracic spine Condition: Stable Prescriptions: New hydrocodone-acetaminophen 5-325 mg tablet 1 tab PO Q6H PRN (Reason: pain) Qty: 14 0RF No Action venlafaxine [Effexor XR] 150 mg Capsule,Extended Release 24hr 150 mg PO DAILY pantoprazole [Protonix] 40 mg tablet,delayed release (DR/EC) 40 mg PO BID Qty: 60 0RF Discharge Orders: Discharge ED (Routine); Ordered 02/07/25 Ordered By: Mauricio Lopez Referrals: Cristóbal Redd DO [Physician, Orthopedics] - 4-7 days Menjivar,DONNA Block [Primary Care Provider, Nurse Practitioner] Discharge Diet: Advance as tolerated Discharge Activity: Resume usual activity Patient Instructions: Back Pain (ED), Opioid Safety Print Language: Tunisian Coding Level of Care Code ED Control Technician for Suze Hoskins
[2025-02-07] MEDS: ondansetron 2 mg/ML SDV 2 mL 4 MG IVP (07:06)
[2025-02-07] MEDS: morphine 4 mg/mL SDV 1 mL IVP (07:06)
[2025-02-07 07:09] LABS: Hematocrit 41.5 % (36-47); Hemoglobin 13.40 g/dL (11.27-16.99); Mean Corpuscular HGB Conc 32.3 g/dL (30-55); Mean Corpuscular Hemoglobin 29.3 pg (27-33); Mean Corpuscular Volume 90.6 fl (85-98); Nucleated Red Blood Cells % 0 %; Platelet Count 264 10^3/cmm (157-399); Red Blood Count 4.58 10^6/uL (3.85-5.65); White Blood Count 5.52 10^3/uL (3.29-11.43)
[2025-02-07 07:12] LABS: Glucose Urine UA Negative (Normal); Nitrate Urine Negative (Negative); Specific Gravity, Urine 1.023 (1.005-1.030)
[2025-02-07 07:21] LABS: Add Urine Microscopic? YES; UA Manual Slide Review YES
[2025-02-07 07:28] LABS: Alanine Aminotransferase 12 U/L (0-33); Albumin Level 4.2 g/dL (3.5-5.2); Alkaline Phosphatase 111 U/L (35-105); Anion Gap 15.0 (5-19); Aspartate Amino Transferase 20 U/L (0-32); Blood Urea Nitrogen 15 mg/dL (8-23); Calcium 9.1 mg/dL (8.5-10.5); Carbon Dioxide 24 mmol/L (22-29); Chloride 105 mmol/L (98-107); Creatinine Clr Calc Pharmacy 61.6206; Globulin 2.7 g/dL (1.3-4.6); Glucose 111 mg/dL (65-115); Lipase 40 U/L (13-60); Osmolality Calculated 292 mOsm/kg (285-295); Potassium 4.0 mmol/L (3.5-5.1); Sodium 140 mmol/L (136-145); Total Protein 6.9 g/dL (6.6-8.7)
[2025-02-07] MEDS: HYDROmorphone 0.5 MG/0.5 ML INJ IVP (07:53)
[2025-02-07 09:26] VITALS: O2SAT 97
[2025-02-07 09:32] VITALS: BP 160/93; PULSE 78; O2SAT 95
--- NOTE | 2025-02-07 16:12 | PC.NURSE ---
Ortho referral sent.
== END 2025-02-07 09:36 | disposition home or self-care (01) ==
PROVIDERS: Emergency Provider Emergency Medicine; PCP Nurse Practitioner Family
DX: M54.6 Pain in thoracic spine (principal)
CPT/HCPCS: 71045; 74176; 80053; 81001; 83690; 85025; 93005; 96374; 96375; 99285; J1171; J1885; J2270; J2405; J7030

== ENCOUNTER → 2025-02-23 15:26 | Outpatient (BNVA) | payer MEDICARE, SELFPAY | PROVIDERS: PCP Nurse Practitioner Family; Visit Provider Orthopaedic Surgery | DX: M48.04 Spinal stenosis, thoracic region (principal); Z98.890 Other specified postprocedural states | CPT/HCPCS: 72110; 99213 ==

== ENCOUNTER 2025-03-07 13:26 | Outpatient (CLI) | payer MEDICARE, SELFPAY ==
--- NOTE | 2025-03-07 13:45 | MR_ITS ---
WS: [id number] MRI LUMBAR SPINE WITH CONTRAST TECHNIQUE: Sagittal T1, T2 and STIR imaging. Axial T1 and T2 imaging. Post gadolinium imaging was obtained. CLINICAL INFORMATION: back pain COMPARISON: MRI [address] 02/07/2025 FINDINGS: Mild lumbar curve. No acute compression. Disc bulging worse at L3-L4 and L4-L5. Again seen is the fat density lesion in the dorsal thecal sac at the T12 level. This demonstrates fat saturation on the fat saturated post gadolinium and STIR imaging. No enhancement. Today this measures approximately 1.0 x 1.2 x 2.6 cm AP by transverse by craniocaudal. This is unchanged by my measurements since 2022. L1-L2: Mild facet arthropathy. L2-L3: Mild annular bulging. Mild facet arthropathy. Slight effacement of the ventral thecal sac. Foramen are patent. L3-L4: Interval hemilaminectomy at this level. LEFT paracentral protrusion impinges the LEFT subarticular recess and appears new compared to previous. Impingement traversing LEFT L4 nerve root. Moderate residual central canal stenosis. Mild to moderate LEFT foraminal narrowing. Moderate facet arthropathy. L4-L5: Interval hemilaminectomy. Improved central canal stenosis. Mild to moderate residual narrowing of the thecal sac. Impingement RIGHT subarticular recess and traversing RIGHT L5 nerve root. Moderate to advanced facet arthropathy. Moderate RIGHT foraminal narrowing. LEFT foramen is patent. L5-S1: Disc osteophyte ridging. Mild facet arthropathy. Spinal canal and foramen are patent. MR/MR lumbar spine wo/w con [id number] IMPRESSION: Some images are limited and degraded by patient motion 1. Fat signal lesion in the dorsal thecal sac at the T12 level is unchanged si nce 2022. 2. Interval hemilaminectomy L3-4 with suspected recurrent LEFT subarticular pr otrusion impinges the LEFT subarticular recess with moderate narrowing of the t hecal sac. Moderate LEFT foraminal narrowing. 3. Interval hemilaminectomy L4-5 with mild to moderate residual narrowing of t he thecal sac and impingement on the traversing RIGHT L5 nerve root. Mild to mo derate RIGHT foraminal narrowing. 4. Moderate facet arthropathy L3-L4 and L4-L5.
[2025-03-07] MEDS: gadobenate dimeglumine 20 mL vial IV (14:21)
== END 2025-03-07 13:27 | disposition home or self-care (01) ==
LOC: RAD 13:26
PROVIDERS: PCP Nurse Practitioner Family; Visit Provider Orthopaedic Surgery
DX: Z98.890 Other specified postprocedural states (principal); M47.816 Spondylosis without myelopathy or radiculopathy, lumbar region; M51.26 Other intervertebral disc displacement, lumbar region; M46.96 Unspecified inflammatory spondylopathy, lumbar region; M51.86 Other intervertebral disc disorders, lumbar region; M51.361 Other intervertebral disc degeneration, lumbar region with lower extremity pain only; M48.061 Spinal stenosis, lumbar region without neurogenic claudication; M48.062 Spinal stenosis, lumbar region with neurogenic claudication; M47.817 Spondylosis without myelopathy or radiculopathy, lumbosacral region; M25.78 Osteophyte, vertebrae; E88.2 Lipomatosis, not elsewhere classified; M51.16 Intervertebral disc disorders with radiculopathy, lumbar region; M96.1 Postlaminectomy syndrome, not elsewhere classified
CPT/HCPCS: 72158

== ENCOUNTER → 2025-03-14 10:23 | Outpatient (BNVA) | payer MEDICARE, SELFPAY | PROVIDERS: PCP Nurse Practitioner Family; Visit Provider Orthopaedic Surgery | DX: D33.2 Benign neoplasm of brain, unspecified (principal); M48.062 Spinal stenosis, lumbar region with neurogenic claudication | CPT/HCPCS: 99213 ==